=== PATIENT | female | born 1960 | race Caucasian/White ===

== ENCOUNTER 2020-01-23 15:19 | Inpatient (IN) | payer MEDICARE ==
[~2020-01-23] VITALS: Ht 162.6 cm; Wt 158.8 kg
--- NOTE | 2020-01-23 15:20 | NUR ---
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
--- NOTE | 2020-01-23 15:33 | NUR ---
PT SEEN AND EXAMINED BY .
[2020-01-23] MEDS ORDERED: OLANZAPINE 10 MG VIAL IM ONE ×2 (15:39→16:00)
[2020-01-23] MEDS ORDERED: LORAZEPAM INJ 2 MG/ML VIAL ONE (15:39)
--- NOTE | 2020-01-23 15:50 | NUR ---
PT'S WIND PROJECTS SUPERVISOR MARISABEL [phone]
[2020-01-23] MEDS ORDERED: LORAZEPAM INJ 2 MG/ML VIAL IM ONE (16:00)
[2020-01-23] MEDS ORDERED: HALOPERIDOL LACTATE INJ 5 MG/ML VIAL IM ONE (16:00)
[2020-01-23] MEDS ORDERED: POTA10TA10 PO (16:07)
[2020-01-23] MEDS ORDERED: BUSP10TA3 PO (16:07)
[2020-01-23] MEDS ORDERED: FURO-144 PO (16:07)
[2020-01-23] MEDS ORDERED: PERP4TAB11 PO (16:07)
[2020-01-23] MEDS ORDERED: PERP8TAB6 PO (16:07)
[2020-01-23] MEDS ORDERED: CLIN30GE2 TP (16:07)
[2020-01-23] MEDS ORDERED: TRAM50TA2 PO (16:07)
[2020-01-23] MEDS ORDERED: DIVA-78 PO (16:07)
[2020-01-23] MEDS ORDERED: MIDAZOLAM HCL 2 MG/2ML VIAL IM ONE (16:30)
[2020-01-23] MEDS ORDERED: MIDAZOLAM HCL 2 MG/2ML VIAL ONE (16:30)
--- NOTE | 2020-01-23 17:15 | NUR ---
IV LINE ESTABLISHED BLOOD DRAWN AND SENT TO LAB.
[2020-01-23 17:19] LABS: BASOPHILS # (AUTO) 0.1 /CMM (0.0-0.2); BASOPHILS % (AUTO) 0.8 % (0.0-2.0); EOSINOPHILS % (AUTO) 1.6 % (0.0-6.0); HEMATOCRIT 39 % (33-45); HEMOGLOBIN 12.7 g/dL (11.5-14.8); LYMPHOCYTES # (AUTO) 1.2 /CMM (0.8-4.8); LYMPHOCYTES % (AUTO) 15.7 % (20.0-44.0); MEAN CORPUSCULAR HGB CONC 33 g/dl (31.0-36.0); MEAN CORPUSCULAR VOLUME 97 fL (82-100); MONOCYTES % (AUTO) 12.5 % (2.0-12.0); NEUTROPHILS # (AUTO) 5.3 /CMM (1.8-8.9); NEUTROPHILS % (AUTO) 69.4 % (43.0-81.0); PLATELET COUNT (AUTO) 284 /CMM (150-450); RED BLOOD CELL COUNT(AUTO) 4.04 MIL/uL (4.0-5.2); WHITE BLOOD COUNT (AUTO) 7.7 K/uL (4.3-11.0)
--- NOTE | 2020-01-23 17:23 | NUR ---
URINE SPECIMEN COLLECTED AND SENT TO LAB.
[2020-01-23 17:36] LABS: ALANINE AMINOTRANSFERASE 20 U/L (12-78); ALBUMIN 2.8 g/dL (3.4-5.0); ALCOHOL, BLOOD < 3 mg/dL (0-0); ALKALINE PHOSPHATASE 95 U/L (46-116); ASPARTATE AMINOTRANSFERASE 19 U/L (15-37); BILIRUBIN,DIRECT 0.1 mg/dL (0.0-0.2); BILIRUBIN,TOTAL 0.2 mg/dL (0.2-1.0); CALCIUM, SERUM 9.1 mg/dL (8.5-10.1); CARBON DIOXIDE 30 mmol/L (21-32); CHLORIDE 107 mmol/L (98-107); CREATININE 0.9 mg/dL (0.6-1.3); GLUCOSE 113 mg/dL (74-106); POTASSIUM 4.1 mmol/L (3.5-5.1); SODIUM SERUM 142 mmol/L (136-145); TOTAL PROTEIN, SERUM 6.8 g/dL (6.4-8.2); UREA NITROGEN, BLOOD 17 mg/dL (7-18)
[2020-01-23 17:37] LABS: ACETAMINOPHEN < 2 ug/ml (10-30); SALICYLATE 1.8 mg/dL (2.8-20.0)
[2020-01-23 17:37] LABS: APPEARANCE,URINE Clear (CLEAR); BILIRUBIN,URINE SMALL (NEGATIVE); BLOOD, URINE Negative Ery/uL (NEGATIVE); COLOR,URINE Yellow (YELLOW); KETONES,URINE Negative (NEGATIVE); LEUKOCYTE ESTERASE ,URINE Negative (NEGATIVE); NITRITE, URINE Negative (NEGATIVE); PH,URINE 5.5 (5.0-8.0); PROTEIN,URINE Trace mg/dl (NEGATIVE); UGLUCOSE Negative (NEGATIVE); UROBILINOGEN,URINE 0.2 EU/dL (0.2)
[2020-01-23 17:45] LABS: BACTERIA,URINE Rare /HPF (None Seen); RBC,URINE NONE SEEN /HPF (0-2); SQUAMOUS EPITHELIAL CELL,UR Few /HPF (None Seen); WBC,URINE NONE SEEN /HPF (0-3)
--- NOTE | 2020-01-23 18:15 | NUR ---
CALLED [facility]. ETA 1 HOUR.
[2020-01-23] MEDS ORDERED: CEPHALEXIN MONOHYDRATE 500 MG CAPSULE PO ONE ×2 (19:00→19:01)
--- NOTE | 2020-01-23 20:22 | NUR ---
BED ASSIGNMENT 219
--- NOTE | 2020-01-23 20:32 | NUR ---
REPORT GIVEN TO GENA CHRISTINA FOR JUAN.
--- NOTE | 2020-01-23 21:07 | NUR ---
PT TRANPORTED TO UNIT ON [facility] WITH EMT AND RN AT BEDSIDE. PT IS IN STABLE CONDITION. PT AMBULATED FROM RMD TO BED WITH AN AIDE OF A FRONT WHEELED WALKER.
[2020-01-23] MEDS ORDERED: ACETAMINOPHEN 325 MG TABLET PO PRN (21:30)
[2020-01-23] MEDS ORDERED: MAG HYDROX/AL HYDROX/SIMETH 30 ML UDC PO PRN (21:30)
[2020-01-23] MEDS ORDERED: MAGNESIUM HYDROXIDE 30 ML UDC PO PRN (21:30)
[2020-01-23] MEDS ORDERED: BLOOD SUGAR DIAGNOSTIC 1 EACH STRIP IN ONE (22:00)
[2020-01-24 02:02] VITALS: BP 117/56
--- NOTE | 2020-01-24 02:06 | NUR ---
GPS MANAGER DENTAL NOTES: ADMITTED A 59 Y/O FEMALE FROM ER ORIGINALLY FROM HOME. ON A 5150 HOLD PLACED ON 01/23/2020 @ 19:15. PER HOLD PT WAS BROUGHT IN BY HER LANDLORD D/O INCREASED AGITATION AND ERRATIC BEHAVIOR. PER HOLD PT LANDLORD REPORTED THAT PT WAS THROWING ITEMS AT HER ROOMMATE, SCREAMING, YELLING DISRUPTIVE, REFUSING MEDICATION, HEARING VOICES, DELUSIONAL, ACCUSING PEOPLE OF STEALING HER STUFF. WAS PREVIOUSLY AN INPATIENT AT [facility] AND HAS A HISTORY OF SCHIZOPHRENIA. UPON FACE TO FACE ASSESSMENT, PT IS A/O X3, APPEARS DEPRESSED, UNCOOPERATIVE, AGITATED, YELLING, CURSING AT STAFF, DISORGANIZED, AND DELUSIONAL. PER ER STAFF, WHILE AT ER PT WAS OUT OF CONTROL AND WAS GIVEN ATIVAN, ZYPREXA AND VERSED. PT BREATHING IS EVEN AND UNLABORED WITH EQUAL RISE AND FALL OF THE CHEST, ON ROOM AIR WITH SPO2 OF 98%. PT HAS NO COMPLAINS OF PAINS AND DENIES SI, HI AT THIS TIME. PT UNABLE TO SIGN ADMISSION PAPER WORK. PT ADVISED OF HOLD AND PT RIGHTS BOOKLET AND A GUIDE TO PRESCRIPTION MEDICATION GIVEN. PT IS UNDER THE CARE OF DR PITT PSYCHIATRIST AND DR CARLSON INTERNAL MEDICINE. BOTH DOCTORS HAVE BEEN INFORMED OF PT ADMISSION. PT BELONGINGS INVENTORIED AND CHECKED FOR CONTRABANDS, BUT PT HAS NO CONTRABANDS. PT IS FULL CODE. SKIN ASSESSMENT DONE, PICTURES TAKEN AND PLACED IN CHAT, PT HAS BILATERAL LOWER EXTREMITIES EDEMA, AND HAS A WOUND ON HER LOWER RIGHT LEG. PT IS OBESE AND HAS DIFFICULTY AMBULATING, NEEDS 2 PERSON ASSIST. WOUND CONSULT, PT EVAL AND SOCIAL SERVICE CONSULT ORDERED. ALL PT QUESTIONS ANSWERED. PT EDUCATED ON THE USE OF CALL LIGHT. CALL LIGHT PLACED WITHIN REACH. PT BED SIDE RAILS ARE UP X2 FOR SAFETY. PT BED IS IN LOW LOCKED POSITION. Q15 AND Q1HR ROUNDS STARTED, CARE PLAN STARTED. WILL CONTINUE TO MONITOR FOR MOOD, SAFETY AND BEHAVIOR AND ENDORSE TO AM NURSE.
[2020-01-24] MEDS ORDERED: OLANZAPINE 10 MG VIAL IM STA (05:35)
[2020-01-24] MEDS ORDERED: LORAZEPAM INJ 2 MG/ML VIAL IM STA (05:35)
--- NOTE | 2020-01-24 05:54 | NUR ---
GPS RN NOTE, PATIENT IS CONFUSED, INCOHERENT, DELUSIONAL, AGITATED, AGGRESSIVE, YELLING, AND STRIKING OUT AT STAFF. LESS RESTRICTIVE MEASURES ATTEMPTED IE OFFERED PO MEDICATION, DIVERSION, 1 TO 1 INTERACTION, AND REORIENTATION WAS TRIED WITH NO POSITIVE EFFECT. PAGED DR PITT AND INFORMED HIM OF MY FINDINGS. DR PITT ORDERED ZYPREXA 10MG IM ONCE STAT AND ATIVAN 2MG IM ONCE STAT. PATIENT ASSISTED TO DEBI CHAIR AND GIVEN AFOREMENTIONED MEDICATION IN HER RIGHT VENTROGLUTEAL WITH THE HELP OF STAFF. PATIENT TOLERATE PROCEDURE WELL. ALL ORDERS NOTED AND CARRIED OUT WILL CONTINUE TO MONITOR THE PATIENT.
--- NOTE | 2020-01-24 07:00 | NUR ---
GPS RN NOTES: PT STILL SCREAMING AND CURSING. CURRENTLY IN DEBI-CHAIR IN HALLWAY YELLING AND CALLING STAFF ROBOTS, DISORGANIZED, DISORIENTED, AGITATED. NO S/S OF RESPIRATORY DISTRESS. WILL CONTINUE TO MONITOR AND ENDORSE TO AM NURSE.
--- NOTE | 2020-01-24 07:10 | NUR ---
GPS RN OPENING NOTE RECEIVED PT AWAKE IN A CHAIR, YELLING AND SCREAMING. AOX3. NO SOB NOTED, NO C/O PAIN AT THIS TIME, RESPIRATIONS EVEN AND UNLABORED. SAFETY PRECAUTIONS IN PLACE, BED IN LOWEST LOCKED POSITION, BED ALARM ON, HOB ELEVATED TO SEMI FOWLERS POSITION, CALL LIGHT WITHIN REACH,WILL CONTINUE WITH PLAN OF CARE AND CONTINUE TO MONITOR
[2020-01-24 08:00] VITALS: BP 127/81
[2020-01-24] MEDS: POTASSIUM CHLORIDE 10 MEQ TABLET.SA PO SCH (09:16)
[2020-01-24] MEDS: FUROSEMIDE 40 MG TABLET PO SCH ×2 (09:16→17:13)
[2020-01-24] MEDS: DIVALPROEX SODIUM 500 MG TABLET.DR PO SCH ×3 (09:16→17:13)
[2020-01-24] MEDS: CEPHALEXIN MONOHYDRATE 500 MG CAPSULE PO SCH ×2 (09:17→21:49)
[2020-01-24] MEDS: TRAMADOL HCL 50 MG TABLET PO SCH (09:27)
--- NOTE | 2020-01-24 11:14 | NUR ---
WOUND CARE CONSULT: PT PRESENTS WITH WOUND TO RT LOWER LEG WITH SURROUNDING REDNESS, SOME REDNESS TO LEFT LOWER LEG AND RASH WITH SOME OPEN SKIN TO RT UNDERBREAST/BREASTFOLD, PRESENT ON ADMISSION. RECOMMENDATIONS MADE FOR SKIN PROTECTION AND CARE OF BREASTFOLD RASH. DISCUSSED WITH NURSING STAFF. RECOMMEND DPM CONSULT. DR BRYSON NOTIFIED OF CONSULT REQUEST. PT IS CONTINENT AT THIS TIME. WILL SEE PRN. WAGNER IN AGREEMENT WITH PLAN OF CARE. Addendum: 01/24/20 at 1116 by IMER WALKER WNDNU Amended: Links added.
--- NOTE | 2020-01-24 13:27 | NUR ---
FRIEND CONTACT: SW contacted pts friend/landlord Marla ([phone]) for collateral contact and discharge/treatment planning. Per Marla, pt has been her friend for 21 years and states pt has been living in her apartment complex for many years. She states that pt was recently hospitalized at [facility] 01/06/20 2 weeks ago for 72 hours. She states that before this recent hospitalization pt had not been psychiatrically hospitalized in 2 years and before that it had been 5 years. She states that pt receives psychiatric treatment at [facility] Address: [address] [id number] and 2/3 months ago pts medication was changed due to pts rapid weight gain of 80lbs. Marla states this is when pt began having severe psychotic symptoms and began hearing voices and being disruptive. She states that pts outside psychiatrist has not been able to manage pts medication and stabilize her.
--- NOTE | 2020-01-24 13:39 | NUR ---
FACILITY CONTACT: SW contacted [facility] Address: [address] , [place] [address] and spoke with pts case manager specialist Annemarie, who confirms pt has been receiving mental health services and is under the care of psychiatrist Dr. Gaviria. She states pt began decompensating after pts psychiatric medications were changed. Annemarie states that once pt is stable for discharge she would like SW to fax clinical information to fax: [phone].
[2020-01-24] MEDS: Z GUARD REMEDY 2 OZ OINT TP SCH (14:04)
--- NOTE | 2020-01-24 14:07 | NUR ---
INITIAL DISCHARGE PLAN: Per pts friend/landlord Marla [phone] pt is able to return home to [address] [place], [address]. LASHAE will help form and safe and proper discharge plan in collaboration with .
[2020-01-24] MEDS: QUETIAPINE FUMARATE 100 MG TABLET PO SCH ×2 (14:24→17:12)
--- NOTE | 2020-01-24 15:32 | NUR ---
PT SEEN BY IMER WOUND CARE NURSE AND THE WOUND DOCTOR. WOUND CARE DONE. AWAITING ORDERS. WILL CONTINUE TO MONITOR
--- NOTE | 2020-01-24 15:54 | NUR ---
GROUP NOTE/INDIVIDUAL SESSION: Pt unable to participate at this time due to being sedated after pt received an IM on this present day for aggressive behavior.
[2020-01-24 16:00] VITALS: BP 124/73
[2020-01-24] MEDS: CLOTRIMAZOLE 1% 15 GM TUBE TP SCH (17:12)
--- NOTE | 2020-01-24 18:59 | NUR ---
GPS RN CLOSING NOTE PATIENT SLEEPING IN BED AND EASILY AWAKEN AT THIS TIME. PT REMAINED STABLE THROUGHOUT SHIFT, WOUND TREATMENT ADMINISTERED PER ORDER. ALL NEEDS, CARE, TREATMENT AND MEDICATIONS ADMINISTERED ANTICIPATED PER ORDER. PT REMAINED COMPLAINT TO CARE, SAFETY PRECAUTIONS IN PLACE, BED IN LOWEST LOCKED POSITION, BED ALARM ON, HOB ELEVATED TO SEMI FOWLERS POSITION, CALL LIGHT WITHIN REACH. WILL ENDORSE TO ADVISORY APPLICATION DEVELOPER NURSE FOR JUAN
[2020-01-24 20:55] VITALS: BP 113/85
--- NOTE | 2020-01-25 05:48 | NUR ---
GPS RN CLOSING NOTE: PATIENT SLEPT MOST OF THE NIGHT AND WOKE UP AT 0530 SCREAMING, CURSING, USING RACIAL SLURS, REFUSING REDIRECTION. RESPONDING TO INTERNAL STIMULI. PT WAS ALSO ANXIOUS, PRN KLONOPIN OFFERED FOR ANXIETY BUT PT REFUSED. NO S/S OF DISTRESS NOTED AT THIS TIME. RESPIRATION EVEN AND UNLABORED WITH EQUAL RISE AND FALL OF THE CHEST. PT ASSISTED TO AMBULATE WITH WALKER AROUND HALLWAY. SAFETY PRECAUTIONS IN PLACE, BED IN LOWEST LOCKED POSITION, BED ALARM ON, HOB ELEVATED TO SEMI FOWLERS POSITION, CALL LIGHT WITHIN REACH. CURRENTLY PT IS IN BED CURSING AND RESPONDING TO INTERNAL STIMULI. WILL CONTINUE TO MONITOR AND ENDORSE TO AM SHIFT.
[2020-01-25 08:00] VITALS: BP 125/63
[2020-01-25] MEDS: POTASSIUM CHLORIDE 10 MEQ TABLET.SA PO SCH (08:47)
[2020-01-25] MEDS: QUETIAPINE FUMARATE 100 MG TABLET PO SCH ×2 (08:47→16:41)
[2020-01-25] MEDS: FUROSEMIDE 40 MG TABLET PO SCH ×2 (08:47→16:40)
[2020-01-25] MEDS: clonazePAM 0.5 MG TABLET PO PRN ×2 (08:47→21:12)
[2020-01-25] MEDS: TRAMADOL HCL 50 MG TABLET PO SCH (08:47)
[2020-01-25] MEDS: CEPHALEXIN MONOHYDRATE 500 MG CAPSULE PO SCH ×2 (08:47→21:10)
[2020-01-25] MEDS: DIVALPROEX SODIUM 500 MG TABLET.DR PO SCH ×3 (08:47→16:41)
[2020-01-25] MEDS: SILVER SULFADIAZINE 50 GM JAR TP SCH (08:50)
[2020-01-25] MEDS: CLOTRIMAZOLE 1% 15 GM TUBE TP SCH ×2 (08:50→16:44)
[2020-01-25] MEDS: Z GUARD REMEDY 2 OZ OINT TP SCH (08:50)
--- NOTE | 2020-01-25 09:03 | NUR ---
GPS/RN-NOTES NOTED PATIENT VERY ANGRY,SCREAMING AND YELLING IN HER ROOM THROWING WATER PITCHER ON THE FLOOR. REDIRECTED PATIENT ,KLONOPIN 0.5MG P.O GIVEN PRN ORDER. WILL CONT. MONITORING FOR SAFETY AND BEHAVIOR.
--- NOTE | 2020-01-25 09:35 | NUR ---
GPS/RN-NOTES DID DRESSING CHANGE ON RIGHT LEG WOUND. Addendum: 01/25/20 at 1637 by PADMA DE LEON RN WOUND TREATMENT DONE
--- NOTE | 2020-01-25 10:00 | NUR ---
GPS/RN-NOTES PATIENT IN BED SLEEPING WITH BREATHING EVEN AND NONLABORED,EASILY AROUSE. WILL CONT. MONITORING Q15 MINS. FOR SAFETY AND BEHAVIOR.
[2020-01-25 16:00] VITALS: BP 123/71
[2020-01-25 16:47] LABS: BASOPHILS % (AUTO) 0.6 % (0.0-2.0); EOSINOPHILS % (AUTO) 3.6 % (0.0-6.0); HEMATOCRIT 36 % (33-45); HEMOGLOBIN 11.8 g/dL (11.5-14.8); LYMPHOCYTES # (AUTO) 1.5 /CMM (0.8-4.8); LYMPHOCYTES % (AUTO) 26.6 % (20.0-44.0); MEAN CORPUSCULAR HGB CONC 33 g/dl (31.0-36.0); MEAN CORPUSCULAR VOLUME 95 fL (82-100); MONOCYTES # (AUTO) 0.5 /CMM (0.1-1.30); MONOCYTES % (AUTO) 8.5 % (2.0-12.0); NEUTROPHILS # (AUTO) 3.5 /CMM (1.8-8.9); NEUTROPHILS % (AUTO) 60.7 % (43.0-81.0); PLATELET COUNT (AUTO) 246 /CMM (150-450); RED BLOOD CELL COUNT(AUTO) 3.74 MIL/uL (4.0-5.2); WHITE BLOOD COUNT (AUTO) 5.8 K/uL (4.3-11.0)
[2020-01-25 16:54] LABS: CALCIUM, SERUM 8.4 mg/dL (8.5-10.1); CREATININE 0.9 mg/dL (0.6-1.3); POTASSIUM 3.8 mmol/L (3.5-5.1)
[2020-01-25 20:42] VITALS: BP 102/54
[2020-01-25] MEDS: TEMAZEPAM 7.5 MG CAPSULE PO PRN (21:11)
[2020-01-26 08:00] VITALS: BP 141/71
[2020-01-26] MEDS: FUROSEMIDE 40 MG TABLET PO SCH ×2 (08:30→16:45)
[2020-01-26] MEDS: DIVALPROEX SODIUM 500 MG TABLET.DR PO SCH ×3 (08:31→16:44)
[2020-01-26] MEDS: CEPHALEXIN MONOHYDRATE 500 MG CAPSULE PO SCH ×2 (08:31→21:09)
[2020-01-26] MEDS: QUETIAPINE FUMARATE 100 MG TABLET PO SCH ×2 (08:31→16:44)
[2020-01-26] MEDS: TRAMADOL HCL 50 MG TABLET PO SCH (08:31)
[2020-01-26] MEDS: POTASSIUM CHLORIDE 10 MEQ TABLET.SA PO SCH (08:31)
[2020-01-26] MEDS: Z GUARD REMEDY 2 OZ OINT TP SCH (08:41)
[2020-01-26] MEDS: SILVER SULFADIAZINE 50 GM JAR TP SCH (08:42)
[2020-01-26] MEDS: CLOTRIMAZOLE 1% 15 GM TUBE TP SCH ×2 (08:42→17:00)
--- NOTE | 2020-01-26 09:00 | NUR ---
RN NOTE- PT LOUD ANXIOUS IRRITABLE ORIENTED TO SELF ONLY, MED COMPLIANT AT PRESENT DELUSIONAL AND DISORGANIZED
[2020-01-26] MEDS: clonazePAM 0.5 MG TABLET PO PRN (11:09)
--- NOTE | 2020-01-26 11:12 | NUR ---
RN NOTE- ANXIOUS LABILE YELLING DELUSIONAL. CLONAZEPAM 0.5 MG GIVEN
--- NOTE | 2020-01-26 12:05 | NUR ---
RN NOTE- CALLED RADIOLOGY REGARDING VENOUS DOPPLER ORDERED FOR PT. TOLD THEYD INFORM THE TECH. HAND RIVETER AWARE.
[2020-01-26 16:00] VITALS: BP 124/71
--- NOTE | 2020-01-26 17:00 | NUR ---
RN NOTE- ANTIFUNGAL APPLIED TO BREAST FOLDS BILATERALLY. DRESSING CHANGE COMPLETED TO RT LOWER EXTREMITY. CLEANSED W NS, SILVADENE TOPICAL APPLIED 4X4 GAUZE AND KERLIX WRAPPED TOLERATED WELL.
[2020-01-26 20:20] VITALS: BP 115/59
[2020-01-26] MEDS: TEMAZEPAM 7.5 MG CAPSULE PO PRN (21:46)
--- NOTE | 2020-01-26 21:46 | NUR ---
GPS-RN NOTE: INSOMNIA PATIENT C/O INABILITY TO SLEEP. ADMINISTERED RESTORIL 7.5MG PO ORDERED. WILL CONTINUE TO MONITOR.
[2020-01-26] MEDS ORDERED: OLANZAPINE 5 MG/TAB.RAPDIS PO SCH (22:00)
--- NOTE | 2020-01-27 02:18 | NUR ---
GPS-RN NOTE: PATIENT C/O BILATERAL FOOT PAIN. ADMINISTERED TYLENOL 650MG PO ORDERED. WILL CONTINUE TO MONITOR FOR EFFECTIVENESS.
[2020-01-27] MEDS: clonazePAM 0.5 MG TABLET PO PRN (06:17)
--- NOTE | 2020-01-27 06:17 | NUR ---
GPS-RN NOTE: AGITATION AFTER MORNING CARE RENDERED TO PATIENT. PATIENT IS VERY LOUD, YELLING AND SCREAMING. VERBALLY ABUSIVE TOWARDS STAFF. ADMINISTERED KLONOPIN 0.5MG PO ORDERED. WILL CONTINUE TO MONITOR FOR SAFETY AND BEHAVIOR.
[2020-01-27 08:00] VITALS: BP 123/66
[2020-01-27] MEDS: FUROSEMIDE 40 MG TABLET PO SCH ×2 (08:05→17:39)
[2020-01-27] MEDS: QUETIAPINE FUMARATE 100 MG TABLET PO SCH ×2 (08:05→17:39)
[2020-01-27] MEDS: DIVALPROEX SODIUM 500 MG TABLET.DR PO SCH ×3 (08:05→17:39)
[2020-01-27] MEDS: POTASSIUM CHLORIDE 10 MEQ TABLET.SA PO SCH (08:05)
[2020-01-27] MEDS: CEPHALEXIN MONOHYDRATE 500 MG CAPSULE PO SCH ×2 (08:05→21:16)
[2020-01-27] MEDS: TRAMADOL HCL 50 MG TABLET PO SCH (08:06)
[2020-01-27] MEDS: OLANZAPINE 5 MG/TAB.RAPDIS PO SCH ×2 (08:12→21:16)
[2020-01-27] MEDS: SILVER SULFADIAZINE 50 GM JAR TP SCH (08:52)
[2020-01-27] MEDS: Z GUARD REMEDY 2 OZ OINT TP PRN (08:52)
[2020-01-27] MEDS: CLOTRIMAZOLE 1% 15 GM TUBE TP SCH ×2 (08:52→17:43)
--- NOTE | 2020-01-27 09:00 | NUR ---
RN NOTE- QUIET TODAY DELUSIONAL PSYCHOTIC FLIGHT OF IDEAS DISORGANIZED PO INTAKE GOOD SLEEP ON AND OFF MED COMPLIANT
[2020-01-27] MEDS: Z GUARD REMEDY 2 OZ OINT TP SCH (09:12)
--- NOTE | 2020-01-27 14:30 | NUR ---
RN NOTE- SAW PT W TRAVEL PTA. DRESSING CHANGE DONE. CLEANSED W NS, SOME UNDERMINING NOTED, PINK GRANULATION TISSUE. NO PURULENCE, NO ODOR, MINIMAL EXUDATE. NO PAIN STATED. PACKED W NS AND GAUZE, SILVADENE APPLIED 4X4 APPLIED, ABD APPLIED WRAPPED W KERLIX TOLERATED WELL.
[2020-01-27 16:00] VITALS: BP 127/84
--- NOTE | 2020-01-27 16:19 | NUR ---
Group Note: SW encouraged the pt to participate in group therapy on 01/27/20 but the pt is obese and cannot transport herself to the activities room. LASHAE attempted to provide the pt with an individual therapy session at bedside but the pt stated that she wanted to remain asleep in her bed because she was feeling fatigued.
[2020-01-27 20:16] VITALS: BP 119/66
[2020-01-27] MEDS: TEMAZEPAM 7.5 MG CAPSULE PO PRN (21:43)
--- NOTE | 2020-01-27 21:43 | NUR ---
GPS-RN NOTE: INSOMNIA PATIENT C/O INABILITY TO SLEEP. ADMINISTERED RESTORIL 7.5MG PO ORDERED. WILL CONTINUE TO MONITOR.
[2020-01-28 08:00] VITALS: BP 105/61
[2020-01-28] MEDS: Z GUARD REMEDY 2 OZ OINT TP SCH (08:26)
[2020-01-28] MEDS: FUROSEMIDE 40 MG TABLET PO SCH ×2 (08:27→17:56)
[2020-01-28] MEDS: CLOTRIMAZOLE 1% 15 GM TUBE TP SCH ×2 (08:27→17:57)
[2020-01-28] MEDS: SILVER SULFADIAZINE 50 GM JAR TP SCH (08:27)
[2020-01-28] MEDS: TRAMADOL HCL 50 MG TABLET PO SCH (08:31)
[2020-01-28] MEDS: CEPHALEXIN MONOHYDRATE 500 MG CAPSULE PO SCH ×2 (08:31→21:16)
[2020-01-28] MEDS: clonazePAM 0.5 MG TABLET PO PRN (08:31)
[2020-01-28] MEDS: OLANZAPINE 5 MG/TAB.RAPDIS PO SCH ×2 (08:32→21:16)
[2020-01-28] MEDS: DIVALPROEX SODIUM 500 MG TABLET.DR PO SCH ×3 (08:32→17:56)
[2020-01-28] MEDS: POTASSIUM CHLORIDE 10 MEQ TABLET.SA PO SCH (08:32)
[2020-01-28] MEDS: QUETIAPINE FUMARATE 100 MG TABLET PO SCH ×2 (08:32→17:56)
--- NOTE | 2020-01-28 15:38 | NUR ---
GROUP NOTE: SW encouraged the pt to participate in group therapy, however, pt is not appropriate at this time. Pt is easily agitated with labile mood, Pt was yelling and screaming for the nurse and when SW approached her pt became verbally aggressive.
[2020-01-28 16:00] VITALS: BP 110/65
[2020-01-29 08:00] VITALS: BP 133/71
[2020-01-29] MEDS: FUROSEMIDE 40 MG TABLET PO SCH ×2 (08:10→16:32)
[2020-01-29] MEDS: QUETIAPINE FUMARATE 100 MG TABLET PO SCH ×2 (08:10→16:31)
[2020-01-29] MEDS: OLANZAPINE 5 MG/TAB.RAPDIS PO SCH ×2 (08:10→21:54)
[2020-01-29] MEDS: TRAMADOL HCL 50 MG TABLET PO SCH (08:10)
[2020-01-29] MEDS: DIVALPROEX SODIUM 500 MG TABLET.DR PO SCH ×3 (08:10→16:31)
[2020-01-29] MEDS: POTASSIUM CHLORIDE 10 MEQ TABLET.SA PO SCH (08:10)
[2020-01-29] MEDS: CEPHALEXIN MONOHYDRATE 500 MG CAPSULE PO SCH ×2 (08:10→21:54)
[2020-01-29] MEDS: Z GUARD REMEDY 2 OZ OINT TP SCH (09:49)
[2020-01-29] MEDS: CLOTRIMAZOLE 1% 15 GM TUBE TP SCH ×2 (09:49→16:38)
[2020-01-29] MEDS: SILVER SULFADIAZINE 50 GM JAR TP SCH (09:49)
--- NOTE | 2020-01-29 10:00 | NUR ---
GPS/RN-NOTES DID WOUND TREATMENT ON RIGHT LOWER LEG ORDERED.
--- NOTE | 2020-01-29 15:17 | NUR ---
Group Note: SW encouraged the pt to participate in group therapy on 01/29/20, however, pt is not appropriate at this time. Pt is easily agitated with labile mood, Pt was yelling and screaming for the nurse and when SW approached her pt became verbally aggressive.
[2020-01-29 16:00] VITALS: BP 127/75
[2020-01-29 19:43] VITALS: BP 115/42
[2020-01-29] MEDS: TEMAZEPAM 7.5 MG CAPSULE PO PRN (21:58)
[2020-01-30 08:00] VITALS: BP 130/68
[2020-01-30] MEDS: DIVALPROEX SODIUM 500 MG TABLET.DR PO SCH ×3 (08:16→17:32)
[2020-01-30] MEDS: POTASSIUM CHLORIDE 10 MEQ TABLET.SA PO SCH (08:17)
[2020-01-30] MEDS: FUROSEMIDE 40 MG TABLET PO SCH ×2 (08:17→17:49)
[2020-01-30] MEDS: CEPHALEXIN MONOHYDRATE 500 MG CAPSULE PO SCH ×2 (08:17→20:07)
[2020-01-30] MEDS: QUETIAPINE FUMARATE 100 MG TABLET PO SCH ×2 (08:17→17:31)
[2020-01-30] MEDS: OLANZAPINE 5 MG/TAB.RAPDIS PO SCH ×3 (08:17→17:32)
[2020-01-30] MEDS: TRAMADOL HCL 50 MG TABLET PO SCH (08:21)
[2020-01-30] MEDS: CLOTRIMAZOLE 1% 15 GM TUBE TP SCH ×2 (10:26→17:34)
[2020-01-30] MEDS: SILVER SULFADIAZINE 50 GM JAR TP SCH (10:27)
[2020-01-30] MEDS: Z GUARD REMEDY 2 OZ OINT TP SCH (10:27)
--- NOTE | 2020-01-30 13:15 | NUR ---
GPS/RN-NOTES SEEN BY DPM BETTYE (WOUND ) AND DID WOUND PACKING. PATIENT TOLERATED WELL.
--- NOTE | 2020-01-30 15:33 | NUR ---
Group Note: SW encouraged the pt to participate in group therapy on 01/30/20, however, pt is not appropriate at this time. Pt is easily agitated with labile mood, Pt was yelling and screaming for the nurse and when SW approached her pt became verbally aggressive. SW discussed with her that the pts medications will be changing as she has not shown much progress and the pt got agitated with the SW.
--- NOTE | 2020-01-30 15:41 | NUR ---
Friend Contact: LASHAE contacted pts friend/lois Marla ([phone]) and discussed the pts treatment plan. LASHAE stated that the pt has not shown much improvement and that the pts medications will be increasing. LASHAE stated that the pt was seen by Physical Therapy and Podiatry three times. LASHAE stated that she will call when the pt has a discharge date.
[2020-01-30 16:00] VITALS: BP 126/81
[2020-01-30 20:00] VITALS: BP 124/56
[2020-01-31 08:00] VITALS: BP 121/89
[2020-01-31] MEDS: POTASSIUM CHLORIDE 10 MEQ TABLET.SA PO SCH (08:24)
[2020-01-31] MEDS: FUROSEMIDE 40 MG TABLET PO SCH ×2 (08:24→17:00)
[2020-01-31] MEDS: QUETIAPINE FUMARATE 100 MG TABLET PO SCH ×2 (08:24→17:24)
[2020-01-31] MEDS: CEPHALEXIN MONOHYDRATE 500 MG CAPSULE PO SCH (08:24)
[2020-01-31] MEDS: DIVALPROEX SODIUM 500 MG TABLET.DR PO SCH ×3 (08:24→17:24)
[2020-01-31] MEDS: OLANZAPINE 5 MG/TAB.RAPDIS PO SCH ×3 (08:24→17:24)
[2020-01-31] MEDS: TRAMADOL HCL 50 MG TABLET PO SCH (08:25)
[2020-01-31] MEDS: CLOTRIMAZOLE 1% 15 GM TUBE TP SCH ×2 (10:09→17:29)
[2020-01-31] MEDS: SILVER SULFADIAZINE 50 GM JAR TP SCH (10:10)
[2020-01-31] MEDS: Z GUARD REMEDY 2 OZ OINT TP SCH (10:10)
[2020-01-31 16:00] VITALS: BP 100/57
[2020-01-31 21:13] VITALS: BP 108/60
[2020-02-01 08:00] VITALS: BP 132/63
[2020-02-01] MEDS: QUETIAPINE FUMARATE 100 MG TABLET PO SCH ×2 (08:56→17:04)
[2020-02-01] MEDS: FUROSEMIDE 40 MG TABLET PO SCH ×2 (08:56→17:03)
[2020-02-01] MEDS: DIVALPROEX SODIUM 500 MG TABLET.DR PO SCH ×3 (08:56→17:03)
[2020-02-01] MEDS: POTASSIUM CHLORIDE 10 MEQ TABLET.SA PO SCH (08:57)
[2020-02-01] MEDS: TRAMADOL HCL 50 MG TABLET PO SCH (08:57)
[2020-02-01] MEDS: OLANZAPINE 5 MG/TAB.RAPDIS PO SCH ×3 (08:57→17:04)
[2020-02-01] MEDS: SILVER SULFADIAZINE 50 GM JAR TP SCH (09:09)
[2020-02-01] MEDS: CLOTRIMAZOLE 1% 15 GM TUBE TP SCH ×2 (09:09→17:08)
[2020-02-01] MEDS: Z GUARD REMEDY 2 OZ OINT TP SCH (09:09)
[2020-02-01 16:00] VITALS: BP 130/61
[2020-02-01 20:46] VITALS: BP 116/72
[2020-02-02] MEDS: clonazePAM 0.5 MG TABLET PO PRN ×2 (01:42→08:40)
--- NOTE | 2020-02-02 01:42 | NUR ---
GPS RN NOTE: ANXIETY PT. APPEARS ANXIOUS. ADMINISTERED KLONOPIN 0.5 MG PO PRN ORDERED. WILL CONTINUE TO MONITOR FOR SAFETY AND BEHAVIOR.
[2020-02-02 08:00] VITALS: BP_SYST 111; BP_SYST 90; BP_DIAS 50; BP_DIAS 66
[2020-02-02] MEDS: TRAMADOL HCL 50 MG TABLET PO SCH (08:39)
[2020-02-02] MEDS: FUROSEMIDE 40 MG TABLET PO SCH ×2 (08:39→17:11)
[2020-02-02] MEDS: OLANZAPINE 5 MG/TAB.RAPDIS PO SCH ×2 (08:40→17:11)
[2020-02-02] MEDS: DIVALPROEX SODIUM 500 MG TABLET.DR PO SCH ×3 (08:40→17:11)
[2020-02-02] MEDS: QUETIAPINE FUMARATE 100 MG TABLET PO SCH ×2 (08:40→17:11)
--- NOTE | 2020-02-02 08:40 | NUR ---
RN NOTE: ANXIETY, AGGRESSION AND AGITATION PT AGITATED, VERBALLY AGGRESSIVE TO STAFF. PT IS DELUSIONAL. BELIEVES STAFF ARE PART OF THE MIGUEL. STATES STAFF ARE "PSYCHOTIC" BECAUSE "THEY HAVE NOT BEEN TAKING THEIR MEDICATIONS". PT YELLING AND DIFFICULT TO REDIRECT. PT MEDICATED WITH HER ROUTINE SEROQUEL, ULTRAM AND PRN KLONOPIN. WILL ASSESS EFFECTIVENESS OF MEDICATION ADMINISTRATION.
[2020-02-02] MEDS: POTASSIUM CHLORIDE 10 MEQ TABLET.SA PO SCH (08:43)
[2020-02-02] MEDS: CLOTRIMAZOLE 1% 15 GM TUBE TP SCH ×2 (09:11→17:23)
[2020-02-02] MEDS: Z GUARD REMEDY 2 OZ OINT TP PRN (09:12)
[2020-02-02] MEDS: Z GUARD REMEDY 2 OZ OINT TP SCH (09:12)
[2020-02-02] MEDS: SILVER SULFADIAZINE 50 GM JAR TP SCH (09:14)
--- NOTE | 2020-02-02 10:44 | NUR ---
RN-CO: NOTIFIED DR PITT THAT PATIENT'S BEHAVIOR IS NOT IMPROVING, PATIENT REMIANS PARANOID, VERY IRRITABLE, TALKING TO HERSELF AND AGITATED. DR PITT ORDERED INCREASE THE DOSAGE OF HER PSYCH MEDICATIONS. NOTED AND CARRIED OUT. WE WILL CONTINUE TO MONITOR THE PATIENT.
--- NOTE | 2020-02-02 15:35 | NUR ---
RN-CO: DR ROJO MADE AWARE THAT PATIENT'S RIGHT LEG WOUND IS WARM AND REDDISH. HOWEVER SHE DENIED PAIN AND DISCOMFORT. HER TEMP IS 97. 5. AWAITING FOR ORDER.
--- NOTE | 2020-02-02 15:48 | NUR ---
RN NOTE: WOUND CARE COMPLETED. 2-3+ EDEMA TO RIGHT LEG. RED AND WARM TO TOUCH. MOD AMT YELLOW/BROWN SLOUGH NOTED. DR. ROJO NOTIFIED.
[2020-02-02 16:03] VITALS: BP 101/62
--- NOTE | 2020-02-02 16:14 | NUR ---
RN-CO: DR ROJO STATED " I WILL STOP BY AND LOOK AT IT."
[2020-02-02 19:54] VITALS: BP 136/69
[2020-02-02] MEDS: TEMAZEPAM 7.5 MG CAPSULE PO PRN (20:51)
[2020-02-03 08:00] VITALS: BP 119/76
[2020-02-03] MEDS: TRAMADOL HCL 50 MG TABLET PO SCH (08:08)
[2020-02-03] MEDS: OLANZAPINE 5 MG/TAB.RAPDIS PO SCH ×2 (08:08→17:08)
[2020-02-03] MEDS: QUETIAPINE FUMARATE 100 MG TABLET PO SCH ×2 (08:09→17:08)
[2020-02-03] MEDS: DIVALPROEX SODIUM 500 MG TABLET.DR PO SCH ×3 (08:09→17:08)
[2020-02-03] MEDS: FUROSEMIDE 40 MG TABLET PO SCH ×3 (08:10→17:08)
[2020-02-03] MEDS: POTASSIUM CHLORIDE 10 MEQ TABLET.SA PO SCH ×2 (08:10→08:43)
--- NOTE | 2020-02-03 08:10 | NUR ---
RN NOTE- B/P 118/76 HR- 64 HELD LASIX AND K AT THIS TIME
[2020-02-03] MEDS: SILVER SULFADIAZINE 50 GM JAR TP SCH (08:14)
[2020-02-03] MEDS: Z GUARD REMEDY 2 OZ OINT TP SCH (08:14)
[2020-02-03] MEDS: CLOTRIMAZOLE 1% 15 GM TUBE TP SCH ×2 (08:14→17:09)
--- NOTE | 2020-02-03 08:45 | NUR ---
RN NOTE- DR CALLE LOOKED AT WOUND. STARTED ON ABX BACTRIM. WOUND CONSULT ORDERED. DISCUSSED BP AND VS. GAVE LASIX AND K SUPP.
--- NOTE | 2020-02-03 09:00 | NUR ---
RN NOTE- DELUSIONAL, CONFUSED ALERT ORIENTED TO PERSON PLACE PO INTAKE GOOD MED COMPLIANT. DR CALLE STARTED PT ON BACTRIM AND STATED WOUND IN RT LEG NEEDS ANOTHER WOUND CARE CONSULT. ORDERS PLACED AWAITING WOUND RN TO REEVAL. ORDERED CMP WELL.
[2020-02-03] MEDS: SULFAMETH/TRIMETH 800/160 MG 1 UDTAB TABLET PO SCH ×2 (09:01→21:08)
[2020-02-03 11:51] LABS: CALCIUM, SERUM 9.1 mg/dL (8.5-10.1); CREATININE 0.9 mg/dL (0.6-1.3); POTASSIUM 3.6 mmol/L (3.5-5.1)
[2020-02-03 12:10] LABS: BASOPHILS % (AUTO) 0.5 % (0.0-2.0); EOSINOPHILS % (AUTO) 3.2 % (0.0-6.0); HEMATOCRIT 40 % (33-45); LYMPHOCYTES # (AUTO) 1.3 /CMM (0.8-4.8); LYMPHOCYTES % (AUTO) 23.3 % (20.0-44.0); MEAN CORPUSCULAR HGB CONC 33 g/dl (31.0-36.0); MEAN CORPUSCULAR VOLUME 94 fL (82-100); MONOCYTES # (AUTO) 0.6 /CMM (0.1-1.30); MONOCYTES % (AUTO) 10.5 % (2.0-12.0); NEUTROPHILS # (AUTO) 3.5 /CMM (1.8-8.9); NEUTROPHILS % (AUTO) 62.5 % (43.0-81.0); PLATELET COUNT (AUTO) 214 /CMM (150-450); RED BLOOD CELL COUNT(AUTO) 4.23 MIL/uL (4.0-5.2); WHITE BLOOD COUNT (AUTO) 5.6 K/uL (4.3-11.0)
--- NOTE | 2020-02-03 15:50 | NUR ---
RN NOTE- WOUND CARE COMPLETED EARLIER W WOUND CARE MD. CLEANSED W NS, 4X4 GAUZE APPLIED TO UNDERMINED AREA, COVERED W DRSG. TAPED SECURELY. HYDRAGEL ORDERED. WILL COMPLETE WOUND CARE AGAIN THIS SHIFT
[2020-02-03 16:00] VITALS: BP 117/67
--- NOTE | 2020-02-03 16:20 | NUR ---
Group Note: SW encouraged the pt to participate in group therapy on 02/03/20, however, pt is not appropriate at this time. Pt is easily agitated with labile mood, Pt was yelling and screaming for the nurse and when SW approached her pt became verbally aggressive. SW discussed with her that the pts medications will be changing as she has not shown much progress and the pt got agitated with the SW.
--- NOTE | 2020-02-03 19:30 | NUR ---
GPS OPENING NOTE PM REPORT RECIEVED FROM ELIAN AVERY. GPS RN PM OPENING PATIENT AWAKE IN BED. SPEECH IS PRESURIZED AND RAMBLING. REVIEWED POC QUESTIONS CONCERNS ADDRESSED. PATIENT DENIES SI/HI AT THIS TIME. WOUND DRESSING TO RIGHT LEG IS INTACT WITH NO S/S OF DRAINAGE AT THIS TIME. APPEARS DISHEVELED. IN NO APPARENT DISTRESS BREATHING EVEN AND UNLABORED DENIES PAIN. BED LOCKED AND PLACED IN LOWEST POSITION TO MAINTAIN SAFETY. FALL PRECAUTIONS IN PLACE. BED ALARM ACTIVE. WILL CONTINUE TO MONITOR FOR SAFETY AND BEHAVIOR.
[2020-02-03 20:23] VITALS: BP 118/57
[2020-02-03] MEDS: TEMAZEPAM 7.5 MG CAPSULE PO PRN (21:07)
--- NOTE | 2020-02-04 01:28 | NUR ---
US DEPARTMENT CALLED AND LEFT MESSAGE REMINDING THAT US STUDY IS STILL PENDING COMPLETION.
[2020-02-04 08:00] VITALS: BP 117/71
[2020-02-04] MEDS: QUETIAPINE FUMARATE 100 MG TABLET PO SCH ×2 (08:35→16:25)
[2020-02-04] MEDS: POTASSIUM CHLORIDE 10 MEQ TABLET.SA PO SCH (08:36)
[2020-02-04] MEDS: DIVALPROEX SODIUM 500 MG TABLET.DR PO SCH ×3 (08:36→16:25)
[2020-02-04] MEDS: FUROSEMIDE 40 MG TABLET PO SCH ×2 (08:36→16:25)
[2020-02-04] MEDS: SULFAMETH/TRIMETH 800/160 MG 1 UDTAB TABLET PO SCH (08:36)
[2020-02-04] MEDS: OLANZAPINE 5 MG/TAB.RAPDIS PO SCH ×2 (08:36→16:25)
[2020-02-04] MEDS: TRAMADOL HCL 50 MG TABLET PO SCH (08:36)
[2020-02-04] MEDS: HYDROGEL DRESSING 90 GM TUBE TP SCH (08:39)
[2020-02-04] MEDS: CLOTRIMAZOLE 1% 15 GM TUBE TP SCH ×2 (08:39→16:26)
[2020-02-04] MEDS: Z GUARD REMEDY 2 OZ OINT TP SCH (08:39)
--- NOTE | 2020-02-04 09:00 | NUR ---
RN NOTE- PT W LESS VERBAL OUTBURSTS, DECREASED DELUSIONAL THINKING. AGREED TO SHOWER. SPOKE W MD THIS MORNING VIA TELE MED. PT HAS RASH TO FOREHEAD ERYTHEMATOUS. NO EXUDATE NO PRURITIS. WILL NOTIFY DR CALLE. DENIES SI [facility]
--- NOTE | 2020-02-04 10:10 | NUR ---
RN NOTE- WOUND CARE COMPLETED RT LOWER LEG. CLEANSED W NS, AQUAGEL APPLIED AND 4X4 PLACED OVER , WRAPPED W KERLIX. ALSO NOTED ERYTHEMATOUS RASH TO FOREHEAD AND NOSE. INCREASING THIS MORNING. PT DENIES PRURITIS. NO EXUDATE. DR CALLE NOTIFIED. ORDERED STOP BACTRIM AND GIVE BENADRYL 25 MG PO Q8 PRN
[2020-02-04] MEDS: diphenhydrAMINE HCL 25 MG CAPSULE PO PRN (11:21)
--- NOTE | 2020-02-04 11:21 | NUR ---
RN NOTE- SKIN IRRITATION TO FOREHEAD AND NOSE. BENADRYL 25 MG GIVEN AT THIS TIME.
[2020-02-04 16:00] VITALS: BP 106/58
--- NOTE | 2020-02-04 17:58 | NUR ---
RN NOTE- VENOUS DOPPLER TO BE DONE ON THIS PT RLE. I PHONED YESTERDAY AFTERNOON AND WAS TOLD TECH HAD THE ORDER AND IT WOULD BE DONE. NO RESULTS TODAY. NO DOPPLER DONE. CALLED RADIOLOGY THIS AFTERNOON AND SPOKE Kimberly LE. STATED TECH HAD ORDER BUT HE'D CALL AND FOLLOW UP. PT HAD REFUSED DOPPLER IN PAST SO IM UNSURE IF TECH CAME AND PT REFUSED OR NOT. PT CONFUSED AT TIMES. AWAITING RADIOLOGY FOLLOW UP.
[2020-02-04 19:58] VITALS: BP 111/56
[2020-02-04] MEDS: TEMAZEPAM 7.5 MG CAPSULE PO PRN (22:15)
--- NOTE | 2020-02-04 22:15 | NUR ---
GPS RN NOTE: INSOMNIA PATIENT C/O INABILITY TO SLEEP. PT REQUESTED FOR SLEEPING PILL. ADMINISTERED RESTORIL 7.5MG PO ORDERED. WILL CONTINUE TO MONITOR.
[2020-02-05 08:00] VITALS: BP 122/78
[2020-02-05] MEDS: FUROSEMIDE 40 MG TABLET PO SCH ×2 (08:08→16:31)
[2020-02-05] MEDS: TRAMADOL HCL 50 MG TABLET PO SCH (08:09)
[2020-02-05] MEDS: OLANZAPINE 5 MG/TAB.RAPDIS PO SCH ×2 (08:09→16:31)
[2020-02-05] MEDS: QUETIAPINE FUMARATE 100 MG TABLET PO SCH ×2 (08:09→16:31)
[2020-02-05] MEDS: DIVALPROEX SODIUM 500 MG TABLET.DR PO SCH ×3 (08:09→16:31)
[2020-02-05] MEDS: POTASSIUM CHLORIDE 10 MEQ TABLET.SA PO SCH (08:09)
[2020-02-05] MEDS: CLOTRIMAZOLE 1% 15 GM TUBE TP SCH ×2 (08:10→16:31)
[2020-02-05] MEDS: HYDROGEL DRESSING 90 GM TUBE TP SCH (08:10)
[2020-02-05] MEDS: Z GUARD REMEDY 2 OZ OINT TP SCH (09:00)
--- NOTE | 2020-02-05 09:40 | NUR ---
Friend Contact: SW contacted pts friend/lois Marla ([phone]) and she stated that she was informed that the pt would be discharged on Monday. SW stated that she would have to speak to the MD because the SW was informed that it would be on . SW went over the pts behaviors with her and also discussed that the friend would have to speak to the nurses regarding the pts skin condition.
--- NOTE | 2020-02-05 14:24 | NUR ---
Group Note: SW encouraged the pt to participate in group therapy on 02/05/20, but the pt stated that she wanted to remain in her bed and that she will be discharged soon anyway so she does not want to concern herself with group.
[2020-02-05 16:00] VITALS: BP 105/68
[2020-02-05 20:12] VITALS: BP 123/65
[2020-02-05] MEDS: TEMAZEPAM 7.5 MG CAPSULE PO PRN (22:38)
[2020-02-06 08:00] VITALS: BP 122/66
[2020-02-06] MEDS: POTASSIUM CHLORIDE 10 MEQ TABLET.SA PO SCH (08:39)
[2020-02-06] MEDS: OLANZAPINE 5 MG/TAB.RAPDIS PO SCH ×2 (08:40→17:02)
[2020-02-06] MEDS: FUROSEMIDE 40 MG TABLET PO SCH ×2 (08:41→17:02)
[2020-02-06] MEDS: TRAMADOL HCL 50 MG TABLET PO SCH (08:41)
[2020-02-06] MEDS: DIVALPROEX SODIUM 500 MG TABLET.DR PO SCH ×3 (08:42→17:02)
[2020-02-06] MEDS: QUETIAPINE FUMARATE 100 MG TABLET PO SCH ×2 (08:42→17:02)
[2020-02-06] MEDS: HYDROGEL DRESSING 90 GM TUBE TP SCH (08:43)
[2020-02-06] MEDS: Z GUARD REMEDY 2 OZ OINT TP SCH (08:44)
[2020-02-06] MEDS: CLOTRIMAZOLE 1% 15 GM TUBE TP SCH ×2 (08:45→17:03)
--- NOTE | 2020-02-06 09:06 | NUR ---
SNF Referral: SW faxed a referral to the following two facilities: [facility] with attn to Aide to the fax number: [phone] [facility] with attn to Ivan to the fax number: [phone].
--- NOTE | 2020-02-06 11:22 | NUR ---
Friend Contact: LASHAE contacted pts friend/lois Gutiérrez ([phone]) and confirmed that the pt is going to be discharged the following day and that she will get picked up around 4:30-5pm.
--- NOTE | 2020-02-06 14:06 | NUR ---
Group Note: SW encouraged the pt to participate in group therapy on 02/06/20, but the pt stated that she wanted to remain in her bed and that she will be discharged soon anyway so she does not want to concern herself with group intervention or even individual. SW informed her that the pt may not be appropriate for a discharge home and that she may need to be in a SNF. Pt stated that she will refuse any services if she is discharged to a SNF.
--- NOTE | 2020-02-06 15:33 | NUR ---
RN NOTES CALLED DR BARAHONA OFFICE [phone], AND LEFT MASSAGE WITH STAFFING RN FOR VASCULAR SURGEON CONSULTATION, PER HOSPITALIST DR KUMAR ORDER.
[2020-02-06 16:00] VITALS: BP 144/72
--- NOTE | 2020-02-06 17:16 | NUR ---
RN NOTES RECEIVED CALL FROM VASCULAR SURGEON Dr. BARAHONA, PER MD WILL FOLLOW PATIENT IN THE OUTPATIENT WOUND CLINIC. . MD'S PHONE # GIVEN PATIENT TO FOLLOW UP.
[2020-02-06 20:00] VITALS: BP 107/54
[2020-02-06] MEDS: TEMAZEPAM 7.5 MG CAPSULE PO PRN (22:07)
--- NOTE | 2020-02-06 22:07 | NUR ---
GPS RN NOTE: INSOMNIA PATIENT C/O INABILITY TO SLEEP. ADMINISTERED RESTORIL 7.5MG PO ORDERED. WILL CONTINUE TO MONITOR.
[2020-02-06 22:33] VITALS: BP 107/54
[2020-02-07] MEDS: diphenhydrAMINE HCL 25 MG CAPSULE PO PRN (01:23)
--- NOTE | 2020-02-07 01:23 | NUR ---
GPS-RN NOTE: BENADRYL 25MG PO PRN FOR ITCHING ON FOREHEAD. WILL CONTINUE TO MONITOR.
--- NOTE | 2020-02-07 06:26 | NUR ---
GPS-RN NOTE: MOM 30ML PO GIVEN FOR CONSTIPATION.
[2020-02-07 08:00] VITALS: BP 111/81
--- NOTE | 2020-02-07 08:35 | NUR ---
DISCHARGE NOTE: Pt will be discharged back to her home [address] at [address] [place], [address]. Pts friend and landlord, Marla ([phone]), will be picking the pt up around 4pm. Pts mood is euthymic with congruent affect. Pt denies visual/auditory hallucinations and denies suicidal/homicidal ideation. Pt will follow up with tele psychiatrist: Johnny [place] at [address] [place] [address]; ; and a fax of records was sent to: [phone] and Flask Maker: Dr. [place] [address] [place] [address]; . The multidisciplinary exit care form was done, printed, signed, and given to the patient.
[2020-02-07] MEDS: POTASSIUM CHLORIDE 10 MEQ TABLET.SA PO SCH (09:05)
[2020-02-07] MEDS: DIVALPROEX SODIUM 500 MG TABLET.DR PO SCH ×2 (09:05→13:05)
[2020-02-07] MEDS: OLANZAPINE 5 MG/TAB.RAPDIS PO SCH (09:05)
[2020-02-07] MEDS: FUROSEMIDE 40 MG TABLET PO SCH (09:05)
[2020-02-07] MEDS: QUETIAPINE FUMARATE 100 MG TABLET PO SCH (09:05)
[2020-02-07] MEDS: TRAMADOL HCL 50 MG TABLET PO SCH (09:06)
[2020-02-07] MEDS: CLOTRIMAZOLE 1% 15 GM TUBE TP SCH (09:06)
[2020-02-07] MEDS: Z GUARD REMEDY 2 OZ OINT TP SCH (09:07)
[2020-02-07] MEDS: HYDROGEL DRESSING 90 GM TUBE TP SCH (09:08)
--- NOTE | 2020-02-07 13:55 | NUR ---
GPS/RN PRESCRIPTIONS FAXED TO THE [facility] FAX [phone]. CONFIRMED WITH PHARMACIST CHARLETTE. PT REFUSED PICTURES ON DISCHARGE. NO SI OR HI AT THE TIME OF ASSESSMENT. FAMILY WILL SUGAR PRESSER PT AT 1600.
--- NOTE | 2020-02-07 16:00 | NUR ---
GPS/RN DISCHARGED HOME VIA PRIVATE CAR WITH FRIEND MARISABEL. PT AMBULATORY WITH WALKER AND ASSIST. WOUND CARE DONE TODAY. PT REFUSED PICTURES TAKEN ON DISCHARGE. EXIT CARE INSTRUCTIONS GIVEN AND UNDERSTOOD. PROPERTY RETURNED.GHOTRA WALKER RETURNED WELL. CAREGIVER MARISABEL ALREADY PICKED UP THE MEDICATIONS FROM PHARMACY ( CALLED IN THE PRESCRIPTIONS EARLIER) NO SI OR HI AT THE TIME OF DISCHARGE REPORTED.
== END 2020-02-07 16:00 | disposition home or self-care (01) | DRG 885 ==
LOC: ER 15:19 → GPS 20:39
PROVIDERS: ADMIT Psychiatry & Neurology Psychiatry; ATTEND Registered Nurse
DX: F20.0 Paranoid schizophrenia (principal); I11.0 Hypertensive heart disease with heart failure; Z68.44 Body mass index [BMI] 60.0-69.9, adult; L03.115 Cellulitis of right lower limb; I50.32 Chronic diastolic (congestive) heart failure; I87.311 Chronic venous hypertension (idiopathic) with ulcer of right lower extremity; L97.819 Non-pressure chronic ulcer of other part of right lower leg with unspecified severity; I87.2 Venous insufficiency (chronic) (peripheral); G89.4 Chronic pain syndrome; E66.01 Morbid (severe) obesity due to excess calories; M62.81 Muscle weakness (generalized); F41.9 Anxiety disorder, unspecified; F32.9 Major depressive disorder, single episode, unspecified; I77.1 Stricture of artery; Z91.81 History of falling; F29 Unspecified psychosis not due to a substance or known physiological condition
CPT/HCPCS: 36415; 80048-TC; 80061-TC; 80076-TC; 80164-TC; 80305; 81000-TC; 82962-TC; 84443-TC; 85025-TC; 87081-TC; 93926-TC; 93970-TC; 97116-TC; 97530-TC; A6248; A6253; G0480; J2060; J2250; J3490; Q0163

== ENCOUNTER 2020-02-15 16:31 | Inpatient (IN) | payer MEDICARE, OTHER ==
[~2020-02-15] VITALS: Ht 162.6 cm; Wt 134.7 kg
[~2020-02-15 16:31] MED LIST: BUSP10TA3 PO; CLIN30GE2 TP; DIVA-78 PO; FURO-144 PO; PERP4TAB11 PO; PERP8TAB6 PO; POTA10TA10 PO; TRAM50TA2 PO
--- NOTE | 2020-02-15 16:56 | NUR ---
DROPPED OFF BY MARISABEL EMERSON, WORSENING AGITATION/SCREAMING AND THROWING THINGS, SINCE SHE WAS D/C'D FRO, GPS, PATIENT NOTED W RLE WOUND AND REDNESS. TO ER BED 10, HOOKED TO MONITOR, CHANGED TO HOSP GOWN, WARM BLANKET PROVIDED, AWAITING MD GALAVIZ.
--- NOTE | 2020-02-15 17:00 | NUR ---
URINE SAMPLE COLLECTED VIA STRAIGHT CATHETER, SENT SAMPLE TO LAB
--- NOTE | 2020-02-15 17:07 | NUR ---
DR ARBOLEDA AT BEDSIDE
[2020-02-15] MEDS ORDERED: OLANZAPINE 10 MG VIAL IM ONE ×4 (17:09→18:30)
[2020-02-15 17:18] LABS: BILIRUBIN,URINE MODERATE (NEGATIVE); BLOOD, URINE Negative Ery/uL (NEGATIVE); COLOR,URINE Yellow (YELLOW); KETONES,URINE Trace (NEGATIVE); LEUKOCYTE ESTERASE ,URINE Negative (NEGATIVE); NITRITE, URINE Negative (NEGATIVE); PH,URINE 5.5 (5.0-8.0); PROTEIN,URINE 30 mg/dl (NEGATIVE); UGLUCOSE Negative (NEGATIVE)
[2020-02-15 17:21] LABS: APPEARANCE,URINE SLIGHTLY HAZY (CLEAR); BACTERIA,URINE Few /HPF (None Seen); SQUAMOUS EPITHELIAL CELL,UR Moderate /HPF (None Seen)
[2020-02-15 17:26] LABS: BASOPHILS # (AUTO) 0.1 /CMM (0.0-0.2); BASOPHILS % (AUTO) 0.9 % (0.0-2.0); EOSINOPHILS % (AUTO) 0.5 % (0.0-6.0); HEMATOCRIT 37 % (33-45); HEMOGLOBIN 12.2 g/dL (11.5-14.8); LYMPHOCYTES # (AUTO) 1.1 /CMM (0.8-4.8); LYMPHOCYTES % (AUTO) 16.6 % (20.0-44.0); MEAN CORPUSCULAR HGB CONC 33 g/dl (31.0-36.0); MEAN CORPUSCULAR VOLUME 94 fL (82-100); MONOCYTES # (AUTO) 0.7 /CMM (0.1-1.30); MONOCYTES % (AUTO) 10.6 % (2.0-12.0); NEUTROPHILS # (AUTO) 4.9 /CMM (1.8-8.9); NEUTROPHILS % (AUTO) 71.4 % (43.0-81.0); PLATELET COUNT (AUTO) 295 /CMM (150-450); RED BLOOD CELL COUNT(AUTO) 3.96 MIL/uL (4.0-5.2); WHITE BLOOD COUNT (AUTO) 6.9 K/uL (4.3-11.0)
[2020-02-15 17:32] LABS: CALCIUM, SERUM 8.9 mg/dL (8.5-10.1); CARBON DIOXIDE 26 mmol/L (21-32); CHLORIDE 108 mmol/L (98-107); CREATININE 0.9 mg/dL (0.6-1.3); GLUCOSE 140 mg/dL (74-106); SODIUM SERUM 141 mmol/L (136-145); UREA NITROGEN, BLOOD 13 mg/dL (7-18)
--- NOTE | 2020-02-15 17:33 | NUR ---
room [id number]
--- NOTE | 2020-02-15 17:39 | NUR ---
report given to Faizan AVERY for nnamdi
[2020-02-15 17:47] LABS: ALANINE AMINOTRANSFERASE 22 U/L (12-78); ALBUMIN 3.1 g/dL (3.4-5.0); ALCOHOL, BLOOD < 3 mg/dL (0-0); ALKALINE PHOSPHATASE 107 U/L (46-116); ASPARTATE AMINOTRANSFERASE 18 U/L (15-37); BILIRUBIN,DIRECT 0.1 mg/dL (0.0-0.2); BILIRUBIN,TOTAL 0.3 mg/dL (0.2-1.0); SALICYLATE < 2.8 mg/dL (2.8-20.0); TOTAL PROTEIN, SERUM 6.9 g/dL (6.4-8.2)
[2020-02-15] MEDS ORDERED: OLAN10TA3 MT (17:55)
[2020-02-15] MEDS ORDERED: QUET300T2 PO (17:55)
[2020-02-15] MEDS ORDERED: VANCOMYCIN 1 GM in IV D5W 250 ML IV ONE (18:00)
[2020-02-15] MEDS ORDERED: PIPERACILLIN /TAZOBACTAM 3.375 G in IV D5W 50 ML IV ONE (18:00)
[2020-02-15] MEDS ORDERED: VANCOMYCIN 1 GM VIAL ONE (18:06)
[2020-02-15] MEDS ORDERED: PIPERACILLIN /TAZOBACTAM 3.375 G VIAL IV ONE (18:06)
[2020-02-15] MEDS ORDERED: Z GUARD REMEDY 2 OZ OINT TP PRN (18:30)
[2020-02-15] MEDS ORDERED: ACETAMINOPHEN 325 MG TABLET PO PRN (18:30)
[2020-02-15] MEDS ORDERED: ONDANSETRON HCL/PF 4 MG/2 ML VIAL IVP PRN (18:30)
[2020-02-15] MEDS ORDERED: ZOLPIDEM TARTRATE 5 MG TABLET PO PRN (18:30)
[2020-02-15] MEDS ORDERED: MAGNESIUM HYDROXIDE 30 ML UDC PO PRN (18:30)
[2020-02-15] MEDS ORDERED: MAG HYDROX/AL HYDROX/SIMETH 30 ML UDC PO PRN (18:30)
--- NOTE | 2020-02-15 19:17 | NUR ---
RN NOTES RECEIVED PATIENT FROM ED. PT IS DELUSIONAL, SAYS SHES HEARING SPIRITS TALKING TO HER. MADE PATIENT COMFORTABLE, BELONGINGS CHECKED OFF, ENDORSED TO NIGHTSHIFT RN FOR JUAN
[2020-02-15 20:00] VITALS: BP 125/94
[2020-02-15] MEDS: PERPHENAZINE 2 MG TABLET PO SCH (20:45)
[2020-02-15] MEDS: QUETIAPINE FUMARATE 100 MG TABLET PO SCH (21:05)
[2020-02-16] MEDS ORDERED: PIPERACILLIN /TAZOBACTAM 3.375 G VIAL IV ONE ×2 (00:27→05:36)
[2020-02-16] MEDS: ZOSYN IVPB 3.375 G in IV D5W 50ml IV SCH ×2 (00:28→06:00)
[2020-02-16 04:00] VITALS: BP 126/71
--- NOTE | 2020-02-16 05:03 | NUR ---
RN notes Received patient in bed resting comfortably with no respiratory distress noted. Breathing even and unlabored. Room air well tolerated. No physical manifestation of pain or discomfort. Alert and confused and disoriented, talking to self, shouting, yelling, crying and very angry. Patient has a history of chronic schizophrenia and other psychiatric disorders. Skin assessment done, admitted for bilateral lower extremities cellulitis with stasis ulcer. Spoke with Dr. Milner, informed him of his new admission. The doctor said he will see her today. Kept clean and dry. Will endorse to next shift for continuity of care.
[2020-02-16 05:04] VITALS: BP 126/62
--- NOTE | 2020-02-16 07:15 | NUR ---
RN OPENING NOTES RECEIVED PATIENT SLEEPING IN BED COMFORTABLY, WITH ONE TO ONE SITTER AT BEDSIDE. PT IS AOX1, DELUSIONAL, WITH PARANOID IDEATIONS. SHE IS ON RA, TOLERATING WELL, NO SOB OR RESP DISTRESS. PT IS ON STRICT BED REST. SKIN IS NOT INTACT, B LOWER EXTREMITY CELLULITIS. IV SITE ON RFA 20 G SL. PT IS ON 5150 HOLD FOR DTO AND GD. SAFETY MEASURES HAVE BEEN IMPLEMENTED, CALL LIGHT IS WITHIN REACH, BED IS IN LOWEST AND LOCKED POSITION, SIDE RAILS UP X2, WILL CONTINUE TO MONITOR FOR ANY CHANGES.
[2020-02-16] MEDS ORDERED: FEE PK DOSING 1 MIN EA MC ONE (07:29)
[2020-02-16] MEDS: PANTOPRAZOLE 40 MG TABLET.DR PO SCH (07:52)
[2020-02-16 08:00] VITALS: BP 108/73
[2020-02-16] MEDS: FUROSEMIDE 40 MG TABLET PO SCH ×2 (08:44→17:25)
[2020-02-16] MEDS: PERPHENAZINE 2 MG TABLET PO SCH ×2 (08:44→17:27)
[2020-02-16] MEDS: POTASSIUM CHLORIDE 10 MEQ TABLET.SA PO SCH (08:44)
[2020-02-16] MEDS: OLANZAPINE 10 MG TABLET PO SCH ×2 (08:44→17:25)
[2020-02-16] MEDS ORDERED: CLINDAMYCIN PHOSPHATE-T 60 ML BOTTLE TP SCH (09:00)
[2020-02-16] MEDS ORDERED: TRAMADOL HCL 50 MG TABLET PO PRN (09:00)
[2020-02-16 11:00] LABS: BASOPHILS % (AUTO) 0.8 % (0.0-2.0); HEMATOCRIT 37 % (33-45); HEMOGLOBIN 11.9 g/dL (11.5-14.8); LYMPHOCYTES % (AUTO) 20.8 % (20.0-44.0); MEAN CORPUSCULAR HGB CONC 32 g/dl (31.0-36.0); MEAN CORPUSCULAR VOLUME 94 fL (82-100); MONOCYTES # (AUTO) 0.6 /CMM (0.1-1.30); MONOCYTES % (AUTO) 12.1 % (2.0-12.0); NEUTROPHILS # (AUTO) 3.1 /CMM (1.8-8.9); NEUTROPHILS % (AUTO) 65.3 % (43.0-81.0); PLATELET COUNT (AUTO) 267 /CMM (150-450); WHITE BLOOD COUNT (AUTO) 4.8 K/uL (4.3-11.0)
[2020-02-16 11:10] LABS: CALCIUM, SERUM 8.6 mg/dL (8.5-10.1); MAGNESIUM 2.2 mg/dL (1.8-2.4); PHOSPHORUS 3.1 mg/dL (2.5-4.9); POTASSIUM 4.1 mmol/L (3.5-5.1)
--- NOTE | 2020-02-16 11:31 | NUR ---
AT 1130 attempted to obtained COVID 19 patient refused stated that she always negative but encouraged Dr Barton was notified stated it is ok
[2020-02-16] MEDS: PIPERACILLIN /TAZOBACTAM 3.375 G in IV D5W 50 ML IV SCH ×3 (12:07→23:55)
[2020-02-16] MEDS: VANCOMYCIN 1.5 GM in IV D5W 500 ML IV SCH (12:49)
--- NOTE | 2020-02-16 14:52 | NUR ---
RN NOTES PATIENT IS EXPERIENCING PARANOID IDEATIONS. STATES THAT THERE ARE CAMERA AROUND THE ROOM. PT ALSO BEGAN SMACKING HERSELF REPEATEDLY. SENT MESSAGE TO BRONSON ASCENCIO NP, RECEIVED ORDER FOR ZYPREXA 10 MG IM X1, WILL CONTINUE TO MONITOR FOR ANY CHANGES.
[2020-02-16] MEDS ORDERED: OLANZAPINE 10 MG VIAL IM ONE (14:56)
--- NOTE | 2020-02-16 15:19 | NUR ---
RN NOTES 10 MG ZYPREXA IM ADMINISTERED. 3 STAFF IN THE ROOM AT TIME OF INJECTION, TATUM GROVER AND SOON CHARGE NURSE. PT HAS STOPPED HURTING HERSELF AND APPEARS MORE CALM AT THIS TIME. WILL CONTINUE TO MONITOR
[2020-02-16 16:00] VITALS: BP 127/75
--- NOTE | 2020-02-16 19:21 | NUR ---
RN CLOSING NOTES PT IS RESTING COMFORTABLY IN BED, ENDORSED TO NIGHTSHIFT RN FOR JUAN.
[2020-02-16] MEDS: QUETIAPINE FUMARATE 100 MG TABLET PO SCH (21:40)
[2020-02-16] MEDS: HYDROCODONE/APAP 5/325MG 1 EACH TABLET PO PRN (21:43)
[2020-02-17] MEDS: PIPERACILLIN /TAZOBACTAM 3.375 G in IV D5W 50 ML IV SCH ×4 (05:28→23:11)
[2020-02-17] MEDS: VANCOMYCIN 1.5 GM in IV D5W 500 ML IV SCH ×2 (06:00→23:54)
--- NOTE | 2020-02-17 06:32 | NUR ---
RN notes Patient is in bed, awake, alert but very agitated, shouting and yelling with episode of hurting self by punching face and head. Vital signs wnl. Vanco for 6am was not given yet. Waiting for Vanco trough result. Awake almost the whole night with 5 to 15mins sleep intervals. Kept clean and dry. Waiting for covid result. Will endorse to next shift for continuity of care
--- NOTE | 2020-02-17 07:37 | NUR ---
MS RN OPENING NOTES RECEIVED PATIENT IN BED, AWAKE, AGITATED AND SCREAMING FOR BREAKFAST. PATIENT WAS INFORMED THAT BREAKFAST IS COMING SOON BUT SHE KEPT SCREAMING "GIVE ME BREAKFAST". PATIENT BREATHING ON ROOM AIR AND SATURATING WELL AT 98%. NO COMPLAINS OF PAIN. RFA IV ACCESS G # 20 PRESENT AND INTACT AT THIS TIME. SAFETY PRECAUTIONS IN PLACE; BED IN LOW POSITION AND LOCKED, RAILS UP X2, CALL LIGHT WITHIN REACH. WILL CONTINUE TO MONITOR PATIENT.
[2020-02-17 08:00] VITALS: BP 137/75
[2020-02-17] MEDS: FUROSEMIDE 40 MG TABLET PO SCH ×2 (08:17→16:59)
[2020-02-17] MEDS: PANTOPRAZOLE 40 MG TABLET.DR PO SCH (08:17)
[2020-02-17] MEDS: OLANZAPINE 10 MG TABLET PO SCH ×2 (08:17→16:58)
[2020-02-17] MEDS: POTASSIUM CHLORIDE 10 MEQ TABLET.SA PO SCH (08:17)
[2020-02-17] MEDS: PERPHENAZINE 2 MG TABLET PO SCH ×2 (08:18→17:43)
[2020-02-17 10:37] LABS: CREATININE 0.9 mg/dL (0.6-1.3); POTASSIUM 5.3 mmol/L (3.5-5.1)
--- NOTE | 2020-02-17 11:04 | NUR ---
MS RN NOTES PATIENT VERBALLY ABUSIVE TOWARDS GROOVING LATHE TENDER AND RN. SCREAMING AND YELLING. PATIENT SOUNDS CONGESTED AND WITH SOB WHILE SCREAMING. O2 AT 92-94% ROOM AIR. REFUSES ANY OXYGEN OR OXIMETER TO THE FINGER. MD NOTIFIED.
--- NOTE | 2020-02-17 11:15 | NUR ---
WOUND CARE CONSULT: REVIEWED CHART, NURSING DOCUMENTATION AND PHOTOS WHICH SHOW REDNESS TO LOWER LEGS AND WOUNDS, PRESENT ON ADMISSION. RECOMMEND DPM CONSULT. DR BRYSON NOTIFIED OF CONSULT REQUEST. PT IS ON USHA ISOFLEX LOW AIRLOSS BED. SKIN PROTECTION RECOMMENDATIONS DISCUSSED WITH NURSING STAFF. WILL SEE PRBernardino WAGNER IN AGREEMENT WITH PLAN OF CARE.
[2020-02-17] MEDS: HYDROCODONE/APAP 5/325MG 1 EACH TABLET PO PRN (11:34)
--- NOTE | 2020-02-17 11:38 | NUR ---
MS RN NOTES PATIENT COMPLAINING OF PAIN 7/10 IN HER LEGS. PRN PAIN MEDICATION NORCO 5-325 ADMINISTERED. WILL REASSESS.
[2020-02-17 16:08] VITALS: BP 123/69
[2020-02-17 17:31] LABS: ABG BASE EXCESS 2.6 mmol/L; ABG PCO2 42.8 mmHg (35.0-45.0); ABG PH 7.424 (7.350-7.450); ABG PO2 63.1 mmHg (75.0-100.0); AaDO2 35.4 mmHg; COHb 0.8 % (0.5-1.5); MetHb 0.5 % (0.0-1.5); O2Hb 90.8 % (94.0-97.0); SITE, ABG Right Brachial; VENT MODE, BG room air
--- NOTE | 2020-02-17 18:46 | NUR ---
MS RN CLOSING NOTES PATIENT IN BED, AWAKE. DURING THE SHIFT AGITATED AND SCREAMING. HAS EPISODES OF BEING CALM BT THEN STARTS YELLING AGAIN. PATIENT BREATHING ON ROOM AIR AND SATURATING AT 95%. ABGs DRAWN; AWAITING RESULTS. PAIN TREATED WITH PRN NORCO. RFA IV ACCESS G # 20 PRESENT AND INTACT AT THIS TIME. ALL NEEDS ATTENDED TO THROUGHOUT THE DAY. WOUND DRESSING DONE. SAFETY PRECAUTIONS IN PLACE; BED IN LOW POSITION AND LOCKED, RAILS UP X2, CALL LIGHT WITHIN REACH. WILL ENDORSE TO [employer] REPORTER NURSE.
--- NOTE | 2020-02-17 19:25 | NUR ---
MS GENA OPEN NOTES PATIENT IS WATCHING TV IN BED. ON RA SATURATING AT 95%, NO SOB/ ACUTE RESPIRATORY DISTRESS NOTED. NO COMPLAINTS OF PAIN AT THE MOMENT. IV ON R FOREARM #20G IS PATENT AND INTACT. BED IS IN LOWEST LOCKED POSITION WITH SIDE RAILS UP X3, SEMI FOWLERS. CALL LIGHT IS WITHIN REACH. WILL CONTINUE TO MONITOR.
[2020-02-17] MEDS: QUETIAPINE FUMARATE 100 MG TABLET PO SCH (21:13)
--- NOTE | 2020-02-18 00:25 | NUR ---
MS RN NOTES ENDORSED REPORT TO GENA MEYERS FOR JUAN.
--- NOTE | 2020-02-18 00:30 | NUR ---
RN NOTE RECEIVED PATIENT AROUND THIS TIME IN BED, SLEEPING COMFORTABLY. ON ISOLATION FOR R/O COVID. SITTER NEXT TO PATIENT'S ROOM. WILL CONTINUE TO MONITOR.
[2020-02-18 04:00] VITALS: BP 116/60
[2020-02-18] MEDS: PIPERACILLIN /TAZOBACTAM 3.375 G in IV D5W 50 ML IV SCH ×3 (05:00→17:01)
[2020-02-18 06:42] LABS: CALCIUM, SERUM 8.9 mg/dL (8.5-10.1); CREATININE 0.9 mg/dL (0.6-1.3); POTASSIUM 3.4 mmol/L (3.5-5.1)
--- NOTE | 2020-02-18 06:47 | NUR ---
RN NOTE PATIENT REMAINED STABLE THROUGHOUT THE NIGHT. NO SIGNIFICANT CHANGES NOTED. ALL NEEDS ATTENDED AND MET. WILL ENDORSE TO AM SHIFT RN FOR CONTINUATION OF CARE.
--- NOTE | 2020-02-18 07:27 | NUR ---
MS RN OPEN NOTES PATIENT IS WATCHING TV IN BED. ALERT OORINTED AT THIS TIME ON RA , NO SOB/ ACUTE RESPIRATORY DISTRESS NOTED. NO COMPLAINTS OF PAIN AT THE MOMENT. IV ON R FOREARM #20G IS PATENT AND INTACT. BED IS IN LOWEST LOCKED POSITION CALL LIGHT IS WITHIN REACH. WILL CONTINUE TO MONITOR. SITTER AT BEDSIDE ,
[2020-02-18] MEDS: PANTOPRAZOLE 40 MG TABLET.DR PO SCH (07:44)
[2020-02-18 08:00] VITALS: BP 133/76
[2020-02-18] MEDS: PERPHENAZINE 2 MG TABLET PO SCH ×2 (08:00→18:00)
[2020-02-18] MEDS: POTASSIUM CHLORIDE 10 MEQ TABLET.SA PO SCH (08:00)
[2020-02-18] MEDS: FUROSEMIDE 40 MG TABLET PO SCH ×2 (08:00→16:22)
[2020-02-18] MEDS: OLANZAPINE 10 MG TABLET PO SCH ×2 (08:00→16:22)
[2020-02-18] MEDS ORDERED: HYDROGEL DRESSING 90 GM TUBE TP SCH (09:00)
--- NOTE | 2020-02-18 09:58 | NUR ---
WOUND CARE FOLLOW UP: REVIEWED CHART, NURSING DOCUMENTATION AND PHOTOS WHICH ALSO SHOW RASHES TO ABDOMINAL/GROIN FOLDS AND BREASTFOLDS, PRESENT ON ADMISSION. RECOMMENDATIONS MADE FOR SKIN PROTECTION AND SKIN CARE. DISCUSSED WITH NURSING STAFF. WILL SEE PRN. WGANER IN AGREEMENT WITH PLAN OF CARE.
--- NOTE | 2020-02-18 10:04 | NUR ---
CHAIRMAN OF THE BOARD NOTE SEENM BY IMER WOUND CARENURSE AWARE THAT PATIEMT HASRASGWS ON BITH BREASST AND ABDOMINAL FOLDSWITH NEW ORDER GIVEN WILL F\U Addendum: 02/18/20 at 1005 by DIONE HICKS RN MS RN NOTE SEEN BY IMER WOUND CARE NURSE, AWARE THAT PATIENT HAS RASHES ON ABDOMINAL FOLDS AND BOTH BREASTS, WITH NEW ORDER GIVEN , WILL F\I
--- NOTE | 2020-02-18 10:41 | NUR ---
MS RN NOTE ALL NEEDS ATTENDED ,TURN REPOSITION ,KEEP CLEAN DRY , NEW HL ON RT AC CRICKET 22 INSERTED WITH GOOD BLOOD RETURN , WILL CONT TO MONITOR
--- NOTE | 2020-02-18 11:42 | NUR ---
MS RN NOTE PER DR PITT PATIENT STILL ON HOLD X14 DAYS , WILL F\U
--- NOTE | 2020-02-18 12:18 | NUR ---
MS RN NOTE K 3.4 ,QUE JAY NOTIFIED DNP WITH NEW ORDER KCL GIVEN, WILL F\U
[2020-02-18] MEDS ORDERED: POTASSIUM CHLORIDE 20 MEQ TAB.PRT.SR PO ONE (12:30)
--- NOTE | 2020-02-18 13:55 | NUR ---
MS RN NOTE ABLE TO URINATE WELL, KEEP CLEAN DRY, ALL NEEDS ATTENDED ,CALL LIGHT WITHIN REACH
--- NOTE | 2020-02-18 15:09 | NUR ---
MS RN NOTE PATIENT IS NEGATIVE FOR COVID- 19 DR GREY DNP NOTIFIED
[2020-02-18 16:00] VITALS: BP_SYST 118; BP_SYST 133; BP_DIAS 55; BP_DIAS 76
[2020-02-18] MEDS ORDERED: CEPH-570 PO (16:54)
[2020-02-18] MEDS ORDERED: LINE600T13 PO (16:54)
[2020-02-18] MEDS ORDERED: CLOTRIMAZOLE 1% 15 GM TUBE TP SCH (17:00)
--- NOTE | 2020-02-18 17:00 | NUR ---
MS RN NOTE PER DR GREY DNP OK TO TRANSFER TO [facility]
--- NOTE | 2020-02-18 17:00 | NUR ---
ms rn note called to pharmacy notified that Trilafon 8 mg not available in [facility] or [facility] , stated that will bring soon ,notified that patient will be transferred to [facility]
[2020-02-18] MEDS: VANCOMYCIN 1.5 GM in IV D5W 500 ML IV SCH (18:00)
--- NOTE | 2020-02-18 18:00 | NUR ---
ms rn note drug Trilafon still not available, patient need to transfer to [facility] also Vanco iv unable to administered due to patient need to transfer to [facility]
--- NOTE | 2020-02-18 18:37 | NUR ---
MS RN NOTE TRANSFERRED TO [facility] ORDERED WITH STABLE CONDITION ,REPORT GIVEN TO FRANCO AVERY , NOTIFIED THAT VANCO IV NOT ADMINISTERED AT 1800 DUE TO PATIENT NEED TO TRANSFER TO [facility] ,STATED THAT WILL F\U
[2020-02-19 16:13] LABS: CALCIUM, SERUM 9.2 mg/dL (8.5-10.1); CREATININE 0.9 mg/dL (0.6-1.3)
[2020-02-21 11:42] LABS: CALCIUM, SERUM 8.8 mg/dL (8.5-10.1); CREATININE 0.8 mg/dL (0.6-1.3); POTASSIUM 3.6 mmol/L (3.5-5.1)
== END 2020-02-18 18:40 | DRG 300 ==
LOC: ER 16:52 → MEDSG1 18:51
PROVIDERS: ADMIT Nurse Practitioner Acute Care; ATTEND Hospitalist
DX: I87.311 Chronic venous hypertension (idiopathic) with ulcer of right lower extremity (principal); L03.115 Cellulitis of right lower limb; F20.0 Paranoid schizophrenia; Z68.43 Body mass index [BMI] 50.0-59.9, adult; I50.32 Chronic diastolic (congestive) heart failure; L97.819 Non-pressure chronic ulcer of other part of right lower leg with unspecified severity; L03.116 Cellulitis of left lower limb; F32.9 Major depressive disorder, single episode, unspecified; F29 Unspecified psychosis not due to a substance or known physiological condition; Z73.6 Limitation of activities due to disability; F41.9 Anxiety disorder, unspecified; E66.01 Morbid (severe) obesity due to excess calories; I11.0 Hypertensive heart disease with heart failure; L30.4 Erythema intertrigo; G89.4 Chronic pain syndrome
CPT/HCPCS: 36415; 36600; 71045-TC; 71250-TC; 73590-TC; 80048-TC; 80061-TC; 80076-TC; 80202-TC; 80305; 81000-TC; 82803-TC; 83605-TC; 83735-TC; 84100-TC; 85025-TC; 87040-TC; 87081-TC; A6248; A6407; G0378; G0480; J2543; J3370; J3490; J7060; Q0175; U0003-CS

== ENCOUNTER 2020-02-18 17:05 | Inpatient (IN) | payer MEDICARE, OTHER ==
[~2020-02-18] VITALS: Ht 160 cm; Wt 134.7 kg
[~2020-02-18 17:05] MED LIST changes: -BUSP10TA3 PO; +CEPH-570 PO; -DIVA-78 PO; +LINE600T13 PO; +OLAN10TA3 MT; +QUET300T2 PO
[2020-02-18 20:05] VITALS: BP 130/61
[2020-02-18] MEDS ORDERED: MAG HYDROX/AL HYDROX/SIMETH 30 ML UDC PO PRN (20:30)
[2020-02-18] MEDS ORDERED: BLOOD SUGAR DIAGNOSTIC 1 EACH STRIP IN ONE (20:30)
[2020-02-18] MEDS ORDERED: TEMAZEPAM 7.5 MG CAPSULE PO PRN (20:30)
[2020-02-18] MEDS ORDERED: ACETAMINOPHEN 325 MG TABLET PO PRN (20:30)
[2020-02-18] MEDS ORDERED: MAGNESIUM HYDROXIDE 30 ML UDC PO PRN (20:30)
[2020-02-19 00:30] VITALS: BP 130/61
--- NOTE | 2020-02-19 00:34 | NUR ---
GPS ADMISSION NOTE: RECEIVED PATIENT FROM [facility], INITIALLY FROM HOME. PATIENT ON A 5250 HOLD ^03/03/2020. PER HOLD PATIENT HAS BEEN DISORGANIZED, HAS AUDITORY HALLUCINATIONS, AND UNABLE TO CARE FOR SELF. PT WAS ORIGINALLY ON 5150 HOLD BECAUSE PT NINOSKA CALLED [facility] ER TO EVALUATE PT D/T INCREASED AGITATION AND AGGRESSIVE BEHAVIOR. UPON FACE TO FACE ASSESSMENT, PT IS A/O X2, BIZARRE, SCREAMING, YELLING, DISORGANIZED, AGITATED, AGGRESSIVE, COMBATIVE AND RESPONDING TO INTERNAL STIMULI. NO S/S OF ACUTE DISTRESS AT THIS TIME. NO SOB NOTED. PATIENT'S BREATHING IS EVEN AND UNLABORED WITH EQUAL RISE AND FALL OF THE CHEST. ON ROOM AIR WITH SPO2 OF 96%. PATIENT ASSISTED WITH TURNING AND REPOSITIONING Q2HR AND PRN FOR COMFORT AND INCREASED CIRCULATION. PATIENT HAS NO NEEDS AT THIS TIME. PATIENT DENIES SI, HI AT THIS TIME. SKIN ASSESSMENT DONE AND PICTURES TAKEN AND PLACED IN CHART. ACCU-CHEK DONE, PT BLOOD SUGAR IS 136MG/DL. PATIENT REFUSED TO SIGN ANY ADMISSION PAPERWORK. PATIENT ADVISED OF HER HOLD AND PT RIGHTS BOOKLET GIVEN. PATIENT IS UNDER THE PSYCHIATRIC CARE OF DR. PITT AND MEDICAL CARE OF [facility]. PATIENT BELONGINGS WERE INVENTORIED AND CHECKED FOR CONTRABAND. NO CONTRABAND NOTED. PATIENT ADVANCED DIRECTIVE PREFERENCE, IMMUNIZATIONS QUESTIONNAIRE, AND OTHER NECESSARY PAPERWORK COMPLETED. PATIENT SKIN ASSESSMENT COMPLETED. PATIENT ORIENTED TO ROOM, FLOOR/UNIT AND STAFF. PM CARE PROVIDED AND SOILED DIAPER CHANGED. PT COMFORTABLE. SAFETY MEASURES INITIATED. CARE PLAN STARTED. PATIENT BED IN LOW LOCKED POSITION WITH BED ALARM ON AND SIDE RAILS UP. CALL LIGHT WITHIN REACH OF THE PATIENT. WILL CONTINUE TO MONITOR AND REASSESS FOR ANY CHANGES [id number]. WILL ATTEND TO ALL MD ADMITTING ORDERS.
[2020-02-19 07:34] LABS: THYROID STIMULATING HORMONE 4.358 uIU/mL (0.358-3.74)
[2020-02-19 07:46] LABS: CREATININE 0.8 mg/dL (0.6-1.3)
[2020-02-19 08:00] VITALS: BP 143/73
--- NOTE | 2020-02-19 10:00 | NUR ---
WOUND CARE CONSULT: PT REFUSED SKIN ASSESSMENT. PT IS SARCASTIC AND ANGRY AT THIS TIME. PT HAS BEEN FOLLOWED BY PODIATRY TEAM. DR BRYSON NOTIFIED OF GPS ADMISSION. RECOMMENDATIONS MADE FOR RASHES TO SKIN FOLDS. DISCUSSED WITH NURSING STAFF. WILL SEE PRN. WAGNER IN AGREEMENT WITH PLAN OF CARE.
--- NOTE | 2020-02-19 10:00 | NUR ---
RN-CO: Patient is verbally abusive to staff, yelling and screaming. Ativan 0.5 mg PO given by primary RN.
[2020-02-19] MEDS: LORAZEPAM 0.5 MG TABLET PO PRN (10:18)
--- NOTE | 2020-02-19 10:49 | NUR ---
PSYCHOSOCIAL NOTE: I, Colleen Pickard LOAD PLANNER, attest to the patients previous psychosocial information dated 01/24/20 Update On Events leading to Admission and Discharge Plan: Pt has returned to the hospital within eight days of her previous discharge date of 02/07/20. Per psychiatric hold, pt was BIB [facility] [phone] due to increased agitation and aggressive behavior. Per hold, pt was screaming, yelling, delusional, and paranoid. The current plan is to increase the patient on her medications and discharge her to a [facility] Facility as pt cannot be safely managed at home. The pt appeared to be in a psychotic state, yelling and talking to herself. Pt is unable to engage in conversation with SW. Pt appears with aggressive/dysphoric mood and blunted affect. Pt appeared to be non-ambulatory at this time, pt is well-groomed and appropriately dressed. SW will work with the pt and the MD regarding appropriate discharge planning. SW will form a safe and proper discharge.
--- NOTE | 2020-02-19 11:01 | NUR ---
HEP LOCKS LEFT FROM FORMER FLOOR REMOVED.NOTED SMALL IRRITATION TO RT. OF ANTECUBITAL IV SITE. PHOTO TAKEN AND PLACED IN CHART.VIEWED BY DR. ESCOBAR.NO ORDERS GIVEN.
[2020-02-19] MEDS: Z GUARD REMEDY 2 OZ OINT TP SCH (12:12)
[2020-02-19] MEDS: CLOTRIMAZOLE 1% 15 GM TUBE TP SCH ×2 (12:12→18:49)
[2020-02-19] MEDS: CEPHALEXIN MONOHYDRATE 500 MG CAPSULE PO SCH ×2 (12:29→18:00)
[2020-02-19] MEDS: POTASSIUM CHLORIDE 10 MEQ TABLET.SA PO SCH (12:29)
--- NOTE | 2020-02-19 13:01 | NUR ---
RN-CO: PATIENT WAS SEEN BY DR PITT VIA TELEMED. WITH ORDERS NOTED.
[2020-02-19] MEDS: QUETIAPINE FUMARATE 100 MG TABLET PO SCH ×2 (14:01→20:56)
[2020-02-19] MEDS: LINEZOLID 600 MG TABLET PO SCH ×2 (14:02→17:00)
[2020-02-19] MEDS: OLANZAPINE 10 MG TABLET PO SCH ×2 (14:02→20:56)
[2020-02-19] MEDS: DIVALPROEX SODIUM 500 MG TABLET.DR PO SCH ×2 (14:02→17:00)
[2020-02-19 16:00] VITALS: BP 126/75
--- NOTE | 2020-02-19 16:09 | NUR ---
INDIVIDUAL INTERVENTION: Pt is inappropriate for group at this time. Pt is yelling and screaming and repeating nonsensical things. Pt was given medication for agitation.
[2020-02-19] MEDS: FUROSEMIDE 40 MG TABLET PO SCH (17:00)
--- NOTE | 2020-02-19 18:30 | NUR ---
EXTREMELY GROGGY AFTER DINNER.LIS. MEDS HELD.
[2020-02-19 19:58] VITALS: BP 146/70
[2020-02-20] MEDS: CEPHALEXIN MONOHYDRATE 500 MG CAPSULE PO SCH ×4 (00:15→17:09)
[2020-02-20 08:00] VITALS: BP 119/48
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
[2020-02-20] MEDS: DIVALPROEX SODIUM 500 MG TABLET.DR PO SCH ×3 (08:43→17:09)
[2020-02-20] MEDS: OLANZAPINE 10 MG TABLET PO SCH ×2 (08:43→17:09)
[2020-02-20] MEDS: FUROSEMIDE 40 MG TABLET PO SCH ×2 (08:43→17:09)
[2020-02-20] MEDS: LINEZOLID 600 MG TABLET PO SCH ×2 (08:43→17:10)
[2020-02-20] MEDS: POTASSIUM CHLORIDE 10 MEQ TABLET.SA PO SCH (08:43)
[2020-02-20] MEDS: QUETIAPINE FUMARATE 100 MG TABLET PO SCH ×2 (08:43→17:11)
[2020-02-20] MEDS: Z GUARD REMEDY 2 OZ OINT TP SCH (08:44)
[2020-02-20] MEDS: HYDROGEL DRESSING 90 GM TUBE TP SCH (08:44)
[2020-02-20] MEDS: CLOTRIMAZOLE 1% 15 GM TUBE TP SCH ×2 (09:12→17:10)
[2020-02-20] MEDS: LORAZEPAM 0.5 MG TABLET PO PRN (12:43)
--- NOTE | 2020-02-20 12:43 | NUR ---
RN NOTES: AGITATION/ RESTLESS PATIENT BEGAN TO BE RESTLESS AND THREW LUNCH TRAY ACROSS THE ROOM. MANI, [employer] ARCHITECT AT BEDSIDE TO ASSIST WITH RELAXATION TECHNIQUES. PATIENT BEGAN TO YELL MORE. ADMINISTERED PRN ATIVAN PO 0.5 mg ORDERED. WILL CONTINUE TO MONITOR PATIENT.
--- NOTE | 2020-02-20 15:50 | NUR ---
INDIVIDUAL INTERVENTION: Pt is not appropriate for group therapy as pt is psychotic and talking to herself. Pt becomes easily agitated and begins yelling. Pt is unable to engage in an appropriate conversation at this time.
[2020-02-20 16:00] VITALS: BP 123/65
[2020-02-20 19:53] VITALS: BP 129/71
[2020-02-20 20:10] VITALS: BP 129/71
--- NOTE | 2020-02-20 21:05 | NUR ---
REFUSED SKIN ASSESSMENT PATIENT REFUSED SKIN ASSESSMENT X 3, YELLING/SCREAMING WHEN REAPPROACHED, CURSING USING BAD WORDS TOWARDS NURSE & REFUSED TO BE TOUCHED AT ALL. WILL KEEP DRY AND MONITOR FOR ANY CHANGES
[2020-02-21] MEDS: CEPHALEXIN MONOHYDRATE 500 MG CAPSULE PO SCH ×4 (00:14→17:38)
[2020-02-21] MEDS: LORAZEPAM 0.5 MG TABLET PO PRN ×2 (05:16→20:38)
--- NOTE | 2020-02-21 05:16 | NUR ---
GPS RN NOTE: ANXIETY/AGITATION PATIENT IS AGITATED, YELLING, SCREAMING, ANXIOUS, PARANOID, RESTLESS, HYPERVERBAL AT THIS TIME, CURSING STAFF. PRN ATIVAN 0.5 MG 1 TAB PO GIVEN, WILL CONTINUE TO MONITOR FOR EFFECTIVENESS.
--- NOTE | 2020-02-21 06:32 | NUR ---
GPS RN NOTE PATIENT DID CALM DOWN FOR A WHILE AFTER GIVING ATIVAN, BUT STARTED YELLING, SCREAMING, CURSING, THREW WATER PITCHER ON THE FLOOR, KEEPS REPEATING," I WANT MY FREEDOM, I WANT TO BE DISCHARGED." STAYED WITH THE PATIENT, EMOTIONAL SUPPORT PROVIDED. SNACKS & FLUIDS GIVEN & TOLERATED WELL. STAYED WITH THE PT. & TALKED TO THE PATIENT FOR A WHILE WHICH HELPED HER TO CALM DOWN. PATIENT IS CALM AT THIS TIME. WILL CONTINUE TO CHECK ON THE PATIENT FREQUENTLY FOR EMOTIONAL SUPPORT, BEHAVIOR MONITORING & SAFETY.
--- NOTE | 2020-02-21 06:55 | NUR ---
GPS RN NOTE: PATIENT IS CALM & SLEEPING AT THIS TIME. WILL ENDORSE TO AM RN FOR CONTINUITY OF CARE.
[2020-02-21] MEDS: HYDROGEL DRESSING 90 GM TUBE TP SCH (09:03)
[2020-02-21] MEDS: CLOTRIMAZOLE 1% 15 GM TUBE TP SCH ×2 (09:04→17:35)
[2020-02-21] MEDS: Z GUARD REMEDY 2 OZ OINT TP SCH (09:05)
[2020-02-21] MEDS: OLANZAPINE 10 MG TABLET PO SCH ×2 (09:07→17:38)
[2020-02-21] MEDS: POTASSIUM CHLORIDE 10 MEQ TABLET.SA PO SCH (09:07)
[2020-02-21] MEDS: FUROSEMIDE 40 MG TABLET PO SCH ×2 (09:07→17:00)
[2020-02-21] MEDS: DIVALPROEX SODIUM 500 MG TABLET.DR PO SCH ×3 (09:07→17:38)
[2020-02-21] MEDS: QUETIAPINE FUMARATE 100 MG TABLET PO SCH ×2 (09:08→17:38)
[2020-02-21] MEDS: LINEZOLID 600 MG TABLET PO SCH ×2 (09:09→17:36)
[2020-02-21 16:00] VITALS: BP 101/58
--- NOTE | 2020-02-21 19:20 | NUR ---
RECEIVED PT. RESTING IN BED, AWAKE, ALERT . BLUNTED AFFECT, AGITATED, DISORGANIZED, CURSING, DISORIENTED, AGGRESSIVE, LABILE, CONFUSED, DISHEVELED. SCREAMS & YELLS AT TIMES, TALKING TO HERSELF. NO S/S OF DISTRESS. DENIES SI/HI AT THIS TIME. PT DENIES SI AT THIS TIME. OFFERED FLUID AND SNACK BUT REFUSED.SAFETY AND FALL PRECAUTION WILL CONTINUE TO MONITOR PT Q 15 MIN FOR MOOD, SAFETY AND BEHAVIOR.
--- NOTE | 2020-02-21 19:50 | NUR ---
RN NOTES :COLLECTED COVID-19 SWAB & SENT TO LAB.
[2020-02-21 20:04] VITALS: BP 141/87
--- NOTE | 2020-02-21 20:39 | NUR ---
GPS RN NOTE: ANXIETY/AGITATION PATIENT IS AGITATED, YELLING, SCREAMING, ANXIOUS, PARANOID, RESTLESS, HYPERVERBAL AT THIS TIME, CURSING STAFF. PRN ATIVAN 0.5 MG 1 TAB PO GIVEN, WILL CONTINUE TO MONITOR .
[2020-02-22] MEDS: CEPHALEXIN MONOHYDRATE 500 MG CAPSULE PO SCH ×5 (00:52→23:00)
--- NOTE | 2020-02-22 01:34 | NUR ---
REFUSED TURNING/REPOSITIONING/OFF LOAD HEELS PATIENT IS AWAKE, HAD SNACK, IN SEMI ROMAN'S POSITION. PATIENT STARTED YELLING, CHECKED ON THE PT. & SHE STATED HER HEELS ARE BURNING BUT PATIENT REFUSED SKIN ASSESSMENT & ONLY WANTED TO PUT LOTION. LOTION APPLIED. ENCOURAGED PATIENT TO USE EXTRA PILLOWS UNDER HER HEELS FOR OFF LOADING BUT PATIENT GOT AGITATED, AGGRESSIVE & REFUSED. OFFERED PATIENT TO BE REPOSITIONED, PT. ASKED THE NURSE TO LEAVE HER ROOM, CURSING USING BAD WORDS & REFUSED ASSISTANCE. WILL CONTINUE TO MONITOR.
[2020-02-22 08:00] VITALS: BP 116/71
[2020-02-22] MEDS: LINEZOLID 600 MG TABLET PO SCH ×2 (08:07→18:18)
[2020-02-22] MEDS: FUROSEMIDE 40 MG TABLET PO SCH ×2 (08:07→18:18)
[2020-02-22] MEDS: OLANZAPINE 10 MG TABLET PO SCH ×2 (08:07→18:18)
[2020-02-22] MEDS: DIVALPROEX SODIUM 500 MG TABLET.DR PO SCH ×3 (08:07→18:18)
[2020-02-22] MEDS: POTASSIUM CHLORIDE 10 MEQ TABLET.SA PO SCH (08:08)
[2020-02-22] MEDS: HYDROGEL DRESSING 90 GM TUBE TP SCH (08:08)
[2020-02-22] MEDS: QUETIAPINE FUMARATE 100 MG TABLET PO SCH ×2 (08:08→18:18)
[2020-02-22] MEDS: CLOTRIMAZOLE 1% 15 GM TUBE TP SCH ×2 (08:08→18:15)
[2020-02-22] MEDS: Z GUARD REMEDY 2 OZ OINT TP SCH (08:09)
[2020-02-22 16:00] VITALS: BP 128/64
[2020-02-22] MEDS: DIVALPROEX SODIUM 250 MG TABLET.DR PO SCH (21:48)
[2020-02-23 05:43] VITALS: BP 148/47
[2020-02-23] MEDS: CEPHALEXIN MONOHYDRATE 500 MG CAPSULE PO SCH ×4 (05:51→23:10)
[2020-02-23 08:00] VITALS: BP 138/85
[2020-02-23] MEDS: LINEZOLID 600 MG TABLET PO SCH ×2 (08:18→16:38)
[2020-02-23] MEDS: QUETIAPINE FUMARATE 100 MG TABLET PO SCH ×2 (08:19→16:38)
[2020-02-23] MEDS: DIVALPROEX SODIUM 500 MG TABLET.DR PO SCH ×3 (08:19→16:38)
[2020-02-23] MEDS: OLANZAPINE 10 MG TABLET PO SCH ×2 (08:19→16:38)
[2020-02-23] MEDS: FUROSEMIDE 40 MG TABLET PO SCH ×2 (08:19→16:38)
[2020-02-23] MEDS: POTASSIUM CHLORIDE 10 MEQ TABLET.SA PO SCH (08:19)
[2020-02-23] MEDS: HYDROGEL DRESSING 90 GM TUBE TP SCH (08:57)
[2020-02-23] MEDS: Z GUARD REMEDY 2 OZ OINT TP SCH (08:58)
[2020-02-23] MEDS: CLOTRIMAZOLE 1% 15 GM TUBE TP SCH ×2 (08:59→16:39)
--- NOTE | 2020-02-23 09:00 | NUR ---
RN NOTE- PT LOUD AGGRESSIVE YELLING POINTING AT 'PEOPLE' IN THE CORNERS THAT AREN'T THERE. FEELS PERSECUTED BY SOMEONE NAMED MILLI. MED COMPLIANT PO INTAKE GOOD,. AMBULATED PT IN SOLORIO W FWW TOLERATED WELL. WOUND CARE DONE TO LOWER RT LEG.
--- NOTE | 2020-02-23 15:00 | NUR ---
STALLION MANAGER NOTE- DRESSING CHANGE PERFORMED TO RLE AT THIS TIME. CLEANSED W NS IODOFORM GAUZE AND HYDROGEL APPLIED, 4X4 PLACED OVER TOP AND WRAPPED W KERLIX. TOLERATED WELL. PINK GRANULATION TISSUE, MINOR ERYTHEMA AND EDEMA THOUGH NO WARMTH OR PURULENCE. FOLLOW UP PRN
[2020-02-23 16:00] VITALS: BP 126/70
[2020-02-23 20:16] VITALS: BP 132/80
[2020-02-23 20:19] VITALS: BP 132/80
[2020-02-23] MEDS: DIVALPROEX SODIUM 250 MG TABLET.DR PO SCH (21:29)
--- NOTE | 2020-02-23 22:45 | NUR ---
GPS RN NOTE: PT. REFUSED TO TAKE PICTURES FOR SKIN ASSESSMENT. SAYS " I DON'T WANT PICTURES TAKEN." WILL ENDORSE TO DAY SHIFT NURSE.
[2020-02-24] MEDS: CEPHALEXIN MONOHYDRATE 500 MG CAPSULE PO SCH ×3 (05:42→17:25)
[2020-02-24 08:00] VITALS: BP 113/66
[2020-02-24] MEDS: FUROSEMIDE 40 MG TABLET PO SCH ×2 (08:29→17:25)
[2020-02-24] MEDS: OLANZAPINE 10 MG TABLET PO SCH ×2 (08:29→17:25)
[2020-02-24] MEDS: LINEZOLID 600 MG TABLET PO SCH ×2 (08:29→17:25)
[2020-02-24] MEDS: POTASSIUM CHLORIDE 10 MEQ TABLET.SA PO SCH (08:29)
[2020-02-24] MEDS: DIVALPROEX SODIUM 500 MG TABLET.DR PO SCH ×3 (08:29→17:25)
[2020-02-24] MEDS: QUETIAPINE FUMARATE 100 MG TABLET PO SCH ×2 (08:30→17:25)
[2020-02-24] MEDS: Z GUARD REMEDY 2 OZ OINT TP SCH (08:44)
[2020-02-24] MEDS: HYDROGEL DRESSING 90 GM TUBE TP SCH (08:44)
[2020-02-24] MEDS: CLOTRIMAZOLE 1% 15 GM TUBE TP SCH ×2 (08:44→17:25)
--- NOTE | 2020-02-24 09:27 | NUR ---
SNF REFERRAL: LASHAE faxed SNF referral to [facility] Address: [address] [place] [address] and [facility] Address: [address] [place] [address] for review.
--- NOTE | 2020-02-24 12:18 | NUR ---
SNF CONTACT: SW received a call from Marni, center rep at [facility] Address: [address] [place] [address] who stated pt was not accepted to the facility due to pts psychotic history and not having capacity to make her own decisions.
--- NOTE | 2020-02-24 15:02 | NUR ---
INDIVIDUAL INTERVENTION: SW attempted to meet with pt to discuss his discharge plan. Pt was asleep and not easily aroused by verbal cues.
[2020-02-24 16:00] VITALS: BP 126/77
--- NOTE | 2020-02-24 19:35 | NUR ---
GPS RN NOTE PATIENT WANTED TO WALK WITH HER WALKER, ASSISTED PATIENT WITH WALKING FROM HER ROOM TO THE END OF THE HALLWAY & CAME BACK TO HER ROOM, WALKS VERY SLOW, 2 NURSES STANDBY ASSIST PROVIDED & WENT BACK TO BED SAFELY.
[2020-02-24 19:59] VITALS: BP 137/72
[2020-02-24] MEDS: LORAZEPAM 0.5 MG TABLET PO PRN (20:05)
[2020-02-24] MEDS: DIVALPROEX SODIUM 250 MG TABLET.DR PO SCH (21:02)
[2020-02-25] MEDS: CEPHALEXIN MONOHYDRATE 500 MG CAPSULE PO SCH ×4 (00:43→17:29)
[2020-02-25 08:00] VITALS: BP 131/59
[2020-02-25] MEDS: LINEZOLID 600 MG TABLET PO SCH ×2 (08:30→17:22)
[2020-02-25] MEDS: DIVALPROEX SODIUM 500 MG TABLET.DR PO SCH ×3 (08:31→17:22)
[2020-02-25] MEDS: POTASSIUM CHLORIDE 10 MEQ TABLET.SA PO SCH (08:31)
[2020-02-25] MEDS: QUETIAPINE FUMARATE 100 MG TABLET PO SCH ×2 (08:31→17:21)
[2020-02-25] MEDS: FUROSEMIDE 40 MG TABLET PO SCH ×2 (08:31→17:22)
[2020-02-25] MEDS: OLANZAPINE 10 MG TABLET PO SCH ×2 (08:31→17:22)
[2020-02-25] MEDS: HYDROGEL DRESSING 90 GM TUBE TP SCH (08:50)
[2020-02-25] MEDS: CLOTRIMAZOLE 1% 15 GM TUBE TP SCH ×3 (08:51→17:15)
[2020-02-25] MEDS: Z GUARD REMEDY 2 OZ OINT TP SCH (08:51)
[2020-02-25] MEDS: LORAZEPAM 0.5 MG TABLET PO PRN (12:49)
--- NOTE | 2020-02-25 12:49 | NUR ---
RN NOTE: ANXIETY PT YELLING AND SCREAMING WHILE STAFF ATTEMPT TO ASSIST HER TO BED. PT IS PARANOID AND FEARFUL. MEDICATED WITH ATIVAN 0.5 MG PO PRN
--- NOTE | 2020-02-25 14:32 | NUR ---
GROUP NOTE: Pt was asleep and not easily roused by verbal cues.
[2020-02-25 15:43] LABS: BASOPHILS # (AUTO) 0.1 /CMM (0.0-0.2); BASOPHILS % (AUTO) 1.1 % (0.0-2.0); EOSINOPHILS % (AUTO) 0.4 % (0.0-6.0); HEMATOCRIT 38 % (33-45); HEMOGLOBIN 12.3 g/dL (11.5-14.8); LYMPHOCYTES # (AUTO) 1.5 /CMM (0.8-4.8); LYMPHOCYTES % (AUTO) 30.9 % (20.0-44.0); MEAN CORPUSCULAR HGB CONC 32 g/dl (31.0-36.0); MEAN CORPUSCULAR VOLUME 93 fL (82-100); MONOCYTES # (AUTO) 0.3 /CMM (0.1-1.30); MONOCYTES % (AUTO) 6.4 % (2.0-12.0); NEUTROPHILS % (AUTO) 61.2 % (43.0-81.0); PLATELET COUNT (AUTO) 244 /CMM (150-450); RED BLOOD CELL COUNT(AUTO) 4.14 MIL/uL (4.0-5.2)
[2020-02-25 16:00] VITALS: BP 105/55
[2020-02-25 16:05] LABS: CALCIUM, SERUM 9.3 mg/dL (8.5-10.1); CREATININE 0.8 mg/dL (0.6-1.3); POTASSIUM 3.8 mmol/L (3.5-5.1)
[2020-02-25] MEDS: ENOXAPARIN SODIUM 40 MG/0.4 ML DISP.SYRIN SQ SCH (17:26)
[2020-02-25 20:13] VITALS: BP 132/74
[2020-02-25] MEDS: DIVALPROEX SODIUM 250 MG TABLET.DR PO SCH (21:13)
--- NOTE | 2020-02-25 21:13 | NUR ---
GPS RN NOTE: INDIGESTION PATIENT STATED "I NEED SOMETHING FOR INDIGESTION CAN I HAVE SOMETHING NOW". ADMINISTERED MAALOX SUSP UDC 30ML PRN @2108. WILL REASSESS AND CONTINUE TO MONITOR Q15 MIN FOR SAFETY AND BEHAVIOR.
[2020-02-26] MEDS: CEPHALEXIN MONOHYDRATE 500 MG CAPSULE PO SCH ×4 (05:45→17:32)
[2020-02-26 08:00] VITALS: BP 130/70
[2020-02-26] MEDS: DIVALPROEX SODIUM 500 MG TABLET.DR PO SCH ×3 (08:38→16:57)
[2020-02-26] MEDS: POTASSIUM CHLORIDE 10 MEQ TABLET.SA PO SCH (08:38)
[2020-02-26] MEDS: OLANZAPINE 10 MG TABLET PO SCH ×2 (08:38→16:57)
[2020-02-26] MEDS: QUETIAPINE FUMARATE 100 MG TABLET PO SCH ×2 (08:38→16:57)
[2020-02-26] MEDS: FUROSEMIDE 40 MG TABLET PO SCH ×2 (08:38→16:57)
[2020-02-26] MEDS: LINEZOLID 600 MG TABLET PO SCH ×2 (08:38→16:57)
[2020-02-26] MEDS: CLOTRIMAZOLE 1% 15 GM TUBE TP SCH ×4 (08:38→16:58)
[2020-02-26] MEDS: Z GUARD REMEDY 2 OZ OINT TP SCH (08:39)
--- NOTE | 2020-02-26 08:55 | NUR ---
SNF CONTACT: SW received a call from Zuleyma, erosion control coordinator at [facility] ([facility]) [id number] [facility] [id number] stating that pt had been referred to their facility from [facility] medical floor and stated pt has been accepted. SW stated that once pt is stable she will be discharged to their facility.
--- NOTE | 2020-02-26 09:48 | NUR ---
WOUND CARE CONSULT: PT NOTED TO HAVE RED SPOTS ON FACE. PT BEING TREATED WITH ANTIFUNGAL CREAM PER Symone MARTINEZ N.P. NURSING STAFF TO OBSERVE EVERY SHIFT. WILL SEE PRN. Addendum: 02/26/20 at 0952 by IMER WALKER WNDNU RN TO DISCUSS RED SPOTS ON FACE WITH PSYCHIATRIST TODAY.
[2020-02-26] MEDS: HYDROGEL DRESSING 90 GM TUBE TP SCH (10:29)
--- NOTE | 2020-02-26 10:30 | NUR ---
GPS/RN-NOTES DID WOUND TREATMENT ON LEFT LOWER LEG ORDERED.
--- NOTE | 2020-02-26 14:14 | NUR ---
GROUP NOTE: Pt was asleep and not easily aroused by verbal cues.
[2020-02-26 16:00] VITALS: BP 136/68
[2020-02-26 20:10] VITALS: BP 118/51
[2020-02-26] MEDS: ENOXAPARIN SODIUM 40 MG/0.4 ML DISP.SYRIN SQ SCH (21:25)
[2020-02-26] MEDS: DIVALPROEX SODIUM 250 MG TABLET.DR PO SCH (21:25)
[2020-02-27 08:00] VITALS: BP 159/86
[2020-02-27] MEDS: POTASSIUM CHLORIDE 10 MEQ TABLET.SA PO SCH (08:14)
[2020-02-27] MEDS: FUROSEMIDE 40 MG TABLET PO SCH ×2 (08:14→16:33)
[2020-02-27] MEDS: DIVALPROEX SODIUM 500 MG TABLET.DR PO SCH ×3 (08:14→16:33)
[2020-02-27] MEDS: QUETIAPINE FUMARATE 100 MG TABLET PO SCH ×2 (08:14→16:34)
[2020-02-27] MEDS: OLANZAPINE 10 MG TABLET PO SCH ×2 (08:14→16:33)
--- NOTE | 2020-02-27 09:28 | NUR ---
RN-CO: Patient refused lab works.
[2020-02-27] MEDS: CLOTRIMAZOLE 1% 15 GM TUBE TP SCH ×4 (09:33→16:39)
[2020-02-27] MEDS: Z GUARD REMEDY 2 OZ OINT TP SCH (09:34)
[2020-02-27] MEDS: HYDROGEL DRESSING 90 GM TUBE TP SCH (09:34)
[2020-02-27] MEDS: LORAZEPAM 0.5 MG TABLET PO PRN (10:08)
--- NOTE | 2020-02-27 10:17 | NUR ---
GPS/RN-NOTES NOTED PATIENT SCREAMING AND YELLING ,AT THE STAFF USING FOUL LANGUAGES. STATED" YOU ALL WILL GET FIRED BECAUSE I WILL MAKE SURE OF THAT". REDIRECTED AND OFFERED ATIVAN AND AGREED. ATIVAN 0.5MG P.O GIVEN PRN ORDER.ALL NEEDS ATTENDED ,ASSISTED BY TWO STAFF TO WALK AND SHOWER .WILL CONTINUE MONITORING FOR SAFETY AND BEHAVIOR.
--- NOTE | 2020-02-27 10:56 | NUR ---
GPS/RN-NOTES PATIENT IN THE DAY ROOM CALM AND QUIET,NO ACUTE DISTRESS NOTED. DID WOUND TREATMENT ON THE LEFT LOWER LEG ORDERED.
--- NOTE | 2020-02-27 14:27 | NUR ---
INDIVIDUAL INTERVENTION: Pt is inappropriate for group at this time. Pt is unable to join at this moment been yelling.
[2020-02-27 16:00] VITALS: BP 100/71
[2020-02-27 20:59] VITALS: BP 123/64
[2020-02-27] MEDS: DIVALPROEX SODIUM 250 MG TABLET.DR PO SCH (21:19)
[2020-02-27] MEDS: ENOXAPARIN SODIUM 40 MG/0.4 ML DISP.SYRIN SQ SCH (21:20)
[2020-02-28 08:00] VITALS: BP 134/69
[2020-02-28] MEDS: OLANZAPINE 10 MG TABLET PO SCH ×2 (08:09→16:38)
[2020-02-28] MEDS: FUROSEMIDE 40 MG TABLET PO SCH ×2 (08:09→16:37)
[2020-02-28] MEDS: DIVALPROEX SODIUM 500 MG TABLET.DR PO SCH ×3 (08:09→16:38)
[2020-02-28] MEDS: QUETIAPINE FUMARATE 100 MG TABLET PO SCH ×2 (08:10→16:38)
[2020-02-28] MEDS: POTASSIUM CHLORIDE 10 MEQ TABLET.SA PO SCH (08:10)
[2020-02-28] MEDS: CLOTRIMAZOLE 1% 15 GM TUBE TP SCH ×4 (09:38→17:07)
[2020-02-28] MEDS: HYDROGEL DRESSING 90 GM TUBE TP SCH (09:39)
[2020-02-28] MEDS: Z GUARD REMEDY 2 OZ OINT TP SCH (09:39)
[2020-02-28] MEDS: LORAZEPAM 0.5 MG TABLET PO PRN ×2 (09:51→19:49)
--- NOTE | 2020-02-28 09:53 | NUR ---
GPS/RN-NOTES PATIENT IN THE ROOM TALKING TO SELF CONTINUOUSLY WITH LOUD VOICE,BANDAGE MAKER TRIED TO REDIRECT BUT PATIENT GET ANGRY AND SCREAM AND YELLS AT THE BANDAGE MAKER.STATED" YOU'RE NOT GOING TO STOP ME,WE HAVE THE F[place]OM OF SPEECH [place]". ATIVAN 1MG P.O GIVEN PRN ORDER.WILL CONT. MONITORING FOR SAFETY AND BEHAVIOR.
--- NOTE | 2020-02-28 11:45 | NUR ---
GPS/RN-NOTES PATIENT WATCHING TV IN THE DAY ROOM,CALM,NO ACUTE DISTRESS NOTED.
--- NOTE | 2020-02-28 15:28 | NUR ---
GROUP NOTE: head loft worker invited pt to join group. Pt was laughing inappropriately and did not want to join.
[2020-02-28 16:00] VITALS: BP 139/73
--- NOTE | 2020-02-28 19:20 | NUR ---
GPS/RN-NOTES PATIENT IN THE ROOM RESPONDING TO INTRENAL STIMULI TALKING TO HER SELF HYPERVERBAL WITH LOUD VOICE, DELUSIONAL , DISORGNIZED ,PARANOID, NEEDY, DEMENDING, GUARDED, PATIENT GET ANGRY AND SCREAM AND YELLS GIVE ME FOOD AND SEWER BUILDER PROVIDE SNACKS TO THE PATIENT, REALITY ORIENTION GIVEN ,WILL CONT. MONITORING FOR SAFETY AND BEHAVIOR.
--- NOTE | 2020-02-28 19:50 | NUR ---
GPS RN NOTE: ANXIETY/AGITATION PATIENT IS AGITATED, YELLING, SCREAMING, ANXIOUS, PARANOID, RESTLESS, HYPERVERBAL AT THIS TIME, CURSING STAFF. PRN ATIVAN 1 MG , PO GIVEN, WILL CONTINUE TO MONITOR .
[2020-02-28 19:59] VITALS: BP 107/55
[2020-02-28] MEDS: ENOXAPARIN SODIUM 40 MG/0.4 ML DISP.SYRIN SQ SCH (21:04)
[2020-02-28] MEDS: DIVALPROEX SODIUM 250 MG TABLET.DR PO SCH (21:14)
[2020-02-28 21:30] VITALS: BP 115/69
[2020-02-29 08:00] VITALS: BP 134/84
[2020-02-29] MEDS: Z GUARD REMEDY 2 OZ OINT TP SCH (08:30)
[2020-02-29] MEDS: CLOTRIMAZOLE 1% 15 GM TUBE TP SCH ×4 (08:30→16:43)
[2020-02-29] MEDS: QUETIAPINE FUMARATE 100 MG TABLET PO SCH ×2 (08:31→16:42)
[2020-02-29] MEDS: DIVALPROEX SODIUM 500 MG TABLET.DR PO SCH ×3 (08:31→16:42)
[2020-02-29] MEDS: HYDROGEL DRESSING 90 GM TUBE TP SCH (08:31)
[2020-02-29] MEDS: OLANZAPINE 10 MG TABLET PO SCH ×2 (08:31→16:43)
[2020-02-29] MEDS: POTASSIUM CHLORIDE 10 MEQ TABLET.SA PO SCH (08:31)
[2020-02-29] MEDS: FUROSEMIDE 40 MG TABLET PO SCH ×2 (08:31→16:42)
[2020-02-29 16:00] VITALS: BP 152/71
[2020-02-29] MEDS: LORAZEPAM 0.5 MG TABLET PO PRN (20:30)
[2020-02-29 20:41] VITALS: BP 131/74
[2020-02-29] MEDS: ENOXAPARIN SODIUM 40 MG/0.4 ML DISP.SYRIN SQ SCH (21:16)
[2020-02-29] MEDS: DIVALPROEX SODIUM 250 MG TABLET.DR PO SCH (22:05)
[2020-03-01 08:00] VITALS: BP 114/62
[2020-03-01] MEDS: OLANZAPINE 10 MG TABLET PO SCH ×2 (08:05→16:46)
[2020-03-01] MEDS: FUROSEMIDE 40 MG TABLET PO SCH ×2 (08:05→16:46)
[2020-03-01] MEDS: POTASSIUM CHLORIDE 10 MEQ TABLET.SA PO SCH (08:05)
[2020-03-01] MEDS: DIVALPROEX SODIUM 500 MG TABLET.DR PO SCH ×3 (08:05→16:47)
[2020-03-01] MEDS: QUETIAPINE FUMARATE 100 MG TABLET PO SCH ×2 (08:06→16:46)
[2020-03-01] MEDS: CLOTRIMAZOLE 1% 15 GM TUBE TP SCH ×4 (08:06→16:47)
[2020-03-01] MEDS: HYDROGEL DRESSING 90 GM TUBE TP SCH (08:07)
[2020-03-01] MEDS: Z GUARD REMEDY 2 OZ OINT TP SCH (08:07)
[2020-03-01 16:00] VITALS: BP 128/69
[2020-03-01 20:21] VITALS: BP 110/63
[2020-03-01] MEDS: ENOXAPARIN SODIUM 40 MG/0.4 ML DISP.SYRIN SQ SCH (20:57)
[2020-03-01] MEDS: DIVALPROEX SODIUM 250 MG TABLET.DR PO SCH (21:18)
[2020-03-02] MEDS: Z GUARD REMEDY 2 OZ OINT TP PRN (06:11)
[2020-03-02 07:23] LABS: BASOPHILS % (AUTO) 0.7 % (0.0-2.0); EOSINOPHILS % (AUTO) 0.4 % (0.0-6.0); HEMATOCRIT 40 % (33-45); LYMPHOCYTES # (AUTO) 1.4 /CMM (0.8-4.8); LYMPHOCYTES % (AUTO) 29.6 % (20.0-44.0); MEAN CORPUSCULAR HGB CONC 32 g/dl (31.0-36.0); MEAN CORPUSCULAR VOLUME 93 fL (82-100); MONOCYTES # (AUTO) 0.6 /CMM (0.1-1.30); MONOCYTES % (AUTO) 12.5 % (2.0-12.0); NEUTROPHILS # (AUTO) 2.7 /CMM (1.8-8.9); NEUTROPHILS % (AUTO) 56.8 % (43.0-81.0); PLATELET COUNT (AUTO) 177 /CMM (150-450); RED BLOOD CELL COUNT(AUTO) 4.35 MIL/uL (4.0-5.2); WHITE BLOOD COUNT (AUTO) 4.7 K/uL (4.3-11.0)
[2020-03-02 07:36] LABS: ALBUMIN 2.6 g/dL (3.4-5.0); BILIRUBIN,TOTAL 0.2 mg/dL (0.2-1.0); CALCIUM, SERUM 9.7 mg/dL (8.5-10.1); CREATININE 0.9 mg/dL (0.6-1.3); POTASSIUM 4.1 mmol/L (3.5-5.1); TOTAL PROTEIN, SERUM 6.6 g/dL (6.4-8.2)
[2020-03-02 08:00] VITALS: BP 145/89
[2020-03-02] MEDS: DIVALPROEX SODIUM 500 MG TABLET.DR PO SCH ×3 (08:00→17:13)
[2020-03-02] MEDS: FUROSEMIDE 40 MG TABLET PO SCH ×2 (08:00→17:13)
[2020-03-02] MEDS: POTASSIUM CHLORIDE 10 MEQ TABLET.SA PO SCH (08:00)
[2020-03-02] MEDS: QUETIAPINE FUMARATE 100 MG TABLET PO SCH ×2 (08:00→17:13)
[2020-03-02] MEDS: OLANZAPINE 10 MG TABLET PO SCH ×2 (08:00→17:13)
[2020-03-02] MEDS: CLOTRIMAZOLE 1% 15 GM TUBE TP SCH ×4 (08:43→17:22)
[2020-03-02] MEDS: HYDROGEL DRESSING 90 GM TUBE TP SCH (08:43)
[2020-03-02] MEDS: Z GUARD REMEDY 2 OZ OINT TP SCH (08:44)
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
--- NOTE | 2020-03-02 12:20 | NUR ---
RN NOTE- DRESSING CHANGE RLE. CLEANSED W NS, PINK GRANULATION TISSUE NO ODOR NO PURULENCE NO WARMTH. HYDROGEL APPLIED COVERED W GAUZE AND WRAPPED AND SECURED ABD PLACED
[2020-03-02 16:00] VITALS: BP 131/76
[2020-03-02 20:24] VITALS: BP 140/66
[2020-03-02] MEDS: ENOXAPARIN SODIUM 40 MG/0.4 ML DISP.SYRIN SQ SCH (20:57)
[2020-03-02] MEDS: DIVALPROEX SODIUM 250 MG TABLET.DR PO SCH (22:00)
[2020-03-03 08:00] VITALS: BP 132/79
[2020-03-03] MEDS: FUROSEMIDE 40 MG TABLET PO SCH ×2 (08:04→16:32)
[2020-03-03] MEDS: QUETIAPINE FUMARATE 100 MG TABLET PO SCH ×2 (08:05→16:32)
[2020-03-03] MEDS: POTASSIUM CHLORIDE 10 MEQ TABLET.SA PO SCH (08:05)
[2020-03-03] MEDS: DIVALPROEX SODIUM 500 MG TABLET.DR PO SCH ×3 (08:05→16:32)
[2020-03-03] MEDS: OLANZAPINE 10 MG TABLET PO SCH ×2 (08:05→16:32)
[2020-03-03] MEDS: CLOTRIMAZOLE 1% 15 GM TUBE TP SCH ×4 (08:13→17:18)
[2020-03-03] MEDS: HYDROGEL DRESSING 90 GM TUBE TP SCH (08:13)
[2020-03-03] MEDS: Z GUARD REMEDY 2 OZ OINT TP SCH (08:14)
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
--- NOTE | 2020-03-03 13:00 | NUR ---
RN NOTE- WOUND CARE RLE. REMOVED OLD DRESSING, CLEANSED W NS . WOUND W PINK GRANULATION TISSUE MINIMAL EXUDATE, NO ODOR NO PURULENCE. APPLIED HYDRAGEL AND GAUZE. ABD PLACED OVER AND SECURED W KERLEX. TOLERATED WELL.
--- NOTE | 2020-03-03 15:34 | NUR ---
GROUP NOTE: Group Topic: Depression SW invited patient to attend group. Patient refused to join group despite encouragement and stared at this technical proposal writer without answering.
[2020-03-03 16:00] VITALS: BP 144/59
[2020-03-03 20:00] VITALS: BP 147/71
[2020-03-03] MEDS: DIVALPROEX SODIUM 250 MG TABLET.DR PO SCH (21:10)
[2020-03-03] MEDS: ENOXAPARIN SODIUM 40 MG/0.4 ML DISP.SYRIN SQ SCH (21:10)
[2020-03-04 08:00] VITALS: BP 149/89
[2020-03-04] MEDS: CLOTRIMAZOLE 1% 15 GM TUBE TP SCH ×4 (08:00→17:06)
[2020-03-04] MEDS: DIVALPROEX SODIUM 500 MG TABLET.DR PO SCH ×3 (08:00→16:34)
[2020-03-04] MEDS: QUETIAPINE FUMARATE 100 MG TABLET PO SCH ×2 (08:00→16:34)
[2020-03-04] MEDS: OLANZAPINE 10 MG TABLET PO SCH ×2 (08:00→16:34)
[2020-03-04] MEDS: POTASSIUM CHLORIDE 10 MEQ TABLET.SA PO SCH (08:00)
[2020-03-04] MEDS: FUROSEMIDE 40 MG TABLET PO SCH ×2 (08:00→16:35)
[2020-03-04] MEDS: Z GUARD REMEDY 2 OZ OINT TP SCH (08:01)
[2020-03-04] MEDS: HYDROGEL DRESSING 90 GM TUBE TP SCH (08:03)
--- NOTE | 2020-03-04 08:29 | NUR ---
Adela Contact: LASHAE called pts julianlormilagros and friend, Marla ([phone]), and inquired about the pts discharge to a SNF. Pts friend stated that she is COVID positive as well as her and that they will not take a second test until March 09. SW stated that the pt cannot stay that long if she does not meet criteria and offered the suggestion of a SNF. SW stated that the pt will receive physical therapy there that will allow her to be stronger when discharged back home. Pts friend stated that she wants to speak to the MDs about the pts progress and her wound before a discharge plan becomes concrete.
--- NOTE | 2020-03-04 09:00 | NUR ---
RN NOTE- PT QUIET THIS MORNING DELUSIONS PERSIST PT RESPONDING TO PEOPLE IN ROOM THAT ARE NOT THERE CONVERSATIONS W PEOPLE SHE SEES. MED COMPLIANT PO INTAKE GOOD NO BEHAVIORAL ISSUES THUS FAR
--- NOTE | 2020-03-04 15:51 | NUR ---
Group Note: SW encouraged the pt to attend group therapy on 03/04/20 on the topic of discharge planning. Pt refused to attend and stated that she wanted to remain in her bedroom sleeping. Pt stated that she also wanted to be discharged as soon as possible.
[2020-03-04 16:00] VITALS: BP 110/64
[2020-03-04 19:50] VITALS: BP 138/71
[2020-03-04 19:58] VITALS: BP 138/71
[2020-03-04] MEDS ORDERED: HALOPERIDOL DECANOATE IM 100 MG/ML AMPUL IM ONE (20:00)
[2020-03-04] MEDS: ENOXAPARIN SODIUM 40 MG/0.4 ML DISP.SYRIN SQ SCH (21:36)
--- NOTE | 2020-03-04 21:40 | NUR ---
GPS RN NOTE: REFUSED SKIN ASSESSMENT PATIENT REFUSED SKIN ASSESSMENT X 3, UNCOOPERATIVE, GOT VERY AGITATED/IRRITABLE, HYPERVERBAL, CURSING & REFUSED TO BE TOUCHED BY THE STAFF, PARANOID, STATED," SEND ME TO THE [facility], I DON'T NEED TO BE HERE, I AM FINE, I DON'T NEED YOUR HELP, LEAVE ME ALONE." WILL TRY TO KEEP DRY AND CLEAN MUCH POSSIBLE. WILL CONTINUE TO MONITOR FOR ANY CHANGES WELL.
[2020-03-04] MEDS: DIVALPROEX SODIUM 250 MG TABLET.DR PO SCH (21:43)
[2020-03-05] MEDS: Z GUARD REMEDY 2 OZ OINT TP PRN (06:04)
[2020-03-05 08:30] VITALS: BP 116/73
[2020-03-05] MEDS: DIVALPROEX SODIUM 500 MG TABLET.DR PO SCH ×3 (08:55→16:33)
[2020-03-05] MEDS: QUETIAPINE FUMARATE 100 MG TABLET PO SCH ×2 (08:56→16:33)
[2020-03-05] MEDS: FUROSEMIDE 40 MG TABLET PO SCH ×2 (08:56→16:33)
[2020-03-05] MEDS: HYDROGEL DRESSING 90 GM TUBE TP SCH (08:56)
[2020-03-05] MEDS: POTASSIUM CHLORIDE 10 MEQ TABLET.SA PO SCH (08:56)
[2020-03-05] MEDS: OLANZAPINE 10 MG TABLET PO SCH ×2 (08:56→16:34)
[2020-03-05] MEDS: Z GUARD REMEDY 2 OZ OINT TP SCH (08:57)
[2020-03-05] MEDS: CLOTRIMAZOLE 1% 15 GM TUBE TP SCH ×4 (08:57→17:14)
--- NOTE | 2020-03-05 14:26 | NUR ---
GROUP NOTE: Topic: Adapting to our environment. textile worker encouraged patient to participate in group therapy. Patient was resting in bed and did not want to engage with this director underwriter sales or other peers other at this time.
[2020-03-05 16:00] VITALS: BP 139/77
[2020-03-05 20:25] VITALS: BP 128/71
[2020-03-05] MEDS: DIVALPROEX SODIUM 250 MG TABLET.DR PO SCH (21:43)
[2020-03-05] MEDS: ENOXAPARIN SODIUM 40 MG/0.4 ML DISP.SYRIN SQ SCH (21:44)
--- NOTE | 2020-03-06 07:13 | NUR ---
GPS RN OPENING NOTES RECEIVED PATIENT RESTING IN BED AT THIS TIME, NO SOB NOTED, NO S/S OF ANY ACUTE DISTRESS NOTED, NO C/O PAIN AT THIS TIME. PT IS COOPERATIVE AND CALM WITH CARE AND EASILY REDIRECTED. PT APPEARS TO TALK TO HERSELF AT TIMES. PT DENIES SI/HI/ AT THIS TIME. ENVIRONMENTAL SAFETY CHECKS PERFORMED. REALITY ORIENTATION DONE. SAFETY PRECAUTIONS IN PLACE AND MAINTAINED AT ALL TIMES, BED IN LOWEST LOCKED POSITION, SIDE RAILS UP, CALL LIGHT WITHIN REACH. WILL CONTINUE TO MONITOR Q 15 MIN, FOR SAFETY, MOOD,BEHAVIOR AND CONTINUE WITH PLAN OF CARE
[2020-03-06 08:00] VITALS: BP 140/69
[2020-03-06] MEDS: CLOTRIMAZOLE 1% 15 GM TUBE TP SCH ×4 (09:00→16:45)
[2020-03-06] MEDS: DIVALPROEX SODIUM 500 MG TABLET.DR PO SCH ×3 (09:07→16:43)
[2020-03-06] MEDS: POTASSIUM CHLORIDE 10 MEQ TABLET.SA PO SCH (09:07)
[2020-03-06] MEDS: FUROSEMIDE 40 MG TABLET PO SCH ×2 (09:07→16:42)
[2020-03-06] MEDS: QUETIAPINE FUMARATE 100 MG TABLET PO SCH ×2 (09:07→16:43)
[2020-03-06] MEDS: OLANZAPINE 10 MG TABLET PO SCH ×2 (09:08→16:43)
[2020-03-06] MEDS: HYDROGEL DRESSING 90 GM TUBE TP SCH (09:09)
[2020-03-06] MEDS: Z GUARD REMEDY 2 OZ OINT TP SCH (09:10)
--- NOTE | 2020-03-06 15:24 | NUR ---
GROUP NOTE: Topic: Learning coping skills. Patient shared that she is feeling "fine". Patient presented with disorganized thought process and states "I don't know why I'm here. She put me in here". motion picture set up worker provided reality reorientation and active listening. Patient presents with flat affect and congruent mood. Patient stated "My orthodox is Satanic Restorationist". This principal technical writer acknowledged patient's beliefs and feelings.
[2020-03-06 16:00] VITALS: BP_SYST 135; BP_SYST 137; BP_DIAS 65
--- NOTE | 2020-03-06 18:52 | NUR ---
GPS RN CLOSING NOTES PATIENT AWAKE IN BED AT THIS TIME. PT REMAINED STABLE THROUGHOUT SHIFT. PT KEPT CLEAN AND DRY. ALL CARE, NEEDS, MEDICATIONS AND WOUND TREATMENT ADMINISTERED ANTICIPATED PER ORDER. SAFETY PRECAUTIONS IN PLACE AND MAINTAINED AT ALL TIMES, BED IN LOWEST LOCKED POSITION, SIDE RAILS UP, CALL LIGHT WITHIN REACH. 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
[2020-03-06 19:38] VITALS: BP 147/88
[2020-03-06] MEDS: ENOXAPARIN SODIUM 40 MG/0.4 ML DISP.SYRIN SQ SCH (21:03)
[2020-03-06 21:15] VITALS: BP 147/88
--- NOTE | 2020-03-06 21:20 | NUR ---
GPS RN NOTE: REFUSED SKIN ASSESSMENT PATIENT REFUSED SKIN ASSESSMENT X 3, UNCOOPERATIVE, GOT VERY AGITATED, IRRITABLE, HYPERVERBAL, STATED," DON'T TOUCH ME, NURSE DON'T SUPPOSE TO TOUCH ME AT ALL." DESPITE OF RISKS & BENEFITS EXPLANATIONS, PT. CONTINUED TO REFUSE SKIN ASSESSMENT. WILL CONTINUE TO MONITOR FOR ANY CHANGES.
[2020-03-06] MEDS: DIVALPROEX SODIUM 250 MG TABLET.DR PO SCH (21:36)
[2020-03-07] MEDS: Z GUARD REMEDY 2 OZ OINT TP PRN (03:10)
--- NOTE | 2020-03-07 06:32 | NUR ---
GPS RN NOTE: REFUSED TO TURN/REPOSITION PATIENT REFUSED TO TURN & REPOSITION IN BED PER PROTOCOL DURING SUPERVISOR STAVE FINISHING, EASILY AGITATED, ANXIOUS, PREFERS TO BE IN SUPINE & SEMI ROMAN'S POSITION ONLY. DESPITE OF RISKS & BENEFITS EXPLANATIONS ABOUT SKIN BREAKDOWN, PATIENT CONTINUED TO REFUSE TURNING & REPOSITIONING. WILL ENDORSE TO AM RN FOR CONTINUITY OF CARE.
[2020-03-07 08:00] VITALS: BP 132/71
[2020-03-07] MEDS: DIVALPROEX SODIUM 500 MG TABLET.DR PO SCH ×3 (08:48→16:28)
[2020-03-07] MEDS: FUROSEMIDE 40 MG TABLET PO SCH ×2 (08:48→16:28)
[2020-03-07] MEDS: QUETIAPINE FUMARATE 100 MG TABLET PO SCH ×2 (08:48→16:28)
[2020-03-07] MEDS: POTASSIUM CHLORIDE 10 MEQ TABLET.SA PO SCH (08:48)
[2020-03-07] MEDS: OLANZAPINE 10 MG TABLET PO SCH ×2 (08:52→16:28)
[2020-03-07] MEDS: HYDROGEL DRESSING 90 GM TUBE TP SCH (08:57)
[2020-03-07] MEDS: CLOTRIMAZOLE 1% 15 GM TUBE TP SCH ×4 (08:57→16:28)
[2020-03-07] MEDS: Z GUARD REMEDY 2 OZ OINT TP SCH (08:57)
[2020-03-07] MEDS: LORAZEPAM 0.5 MG TABLET PO PRN (12:24)
--- NOTE | 2020-03-07 12:30 | NUR ---
PATIENT REPORTS "BULLYING RING" AND IS AGITATED, CRYING AND SCREAMING ABOUT GOING HOME. PRN ATIVAN GIVEN ORDERED. WILL MONITOR PATIENT CLOSELY
[2020-03-07 16:00] VITALS: BP 114/54
--- NOTE | 2020-03-07 16:50 | NUR ---
PATIENT CLEANED AND LINENS CHANGED. ATTEMPTED TO ASSESS AND LOOK AT WOUND ON LOWER LEG FOR WOUND CARE, BUT PATIENT REFUSED WOUND CARE. WILL ENDORSE THIS TO NIGHT NURSE
[2020-03-07 21:05] VITALS: BP 101/58
[2020-03-07] MEDS: DIVALPROEX SODIUM 250 MG TABLET.DR PO SCH (21:23)
[2020-03-07] MEDS: ENOXAPARIN SODIUM 40 MG/0.4 ML DISP.SYRIN SQ SCH (21:24)
[2020-03-08 08:00] VITALS: BP 131/95
[2020-03-08] MEDS: POTASSIUM CHLORIDE 10 MEQ TABLET.SA PO SCH (08:20)
[2020-03-08] MEDS: LORAZEPAM 0.5 MG TABLET PO PRN (08:20)
[2020-03-08] MEDS: OLANZAPINE 10 MG TABLET PO SCH ×2 (08:20→16:21)
[2020-03-08] MEDS: FUROSEMIDE 40 MG TABLET PO SCH ×2 (08:20→16:21)
[2020-03-08] MEDS: QUETIAPINE FUMARATE 100 MG TABLET PO SCH ×2 (08:20→16:21)
[2020-03-08] MEDS: DIVALPROEX SODIUM 500 MG TABLET.DR PO SCH ×3 (08:23→16:21)
[2020-03-08] MEDS: CLOTRIMAZOLE 1% 15 GM TUBE TP SCH ×4 (08:28→16:21)
[2020-03-08] MEDS: HYDROGEL DRESSING 90 GM TUBE TP SCH (08:28)
[2020-03-08] MEDS: Z GUARD REMEDY 2 OZ OINT TP SCH (08:29)
--- NOTE | 2020-03-08 08:30 | NUR ---
PATIENT IS SCREAMING LOUDLY IN HER BACK, SAYING SHE IS SEEING HER MOTHER, THROWING FOOD,SAYING HER MOTHER TOLD HER TO DO IT. GAVE MARII KEANEN
--- NOTE | 2020-03-08 09:00 | NUR ---
RN OPENING NOTES RECEIVED PT RESTING IN HER BED. AWAKE, A & O X 2, CONFUSED, FORGETFUL, HYPERVERBAL,SCREAMING NO SIGNS OF DISTRESS NOTED, LABILE, ANXIOUS, RESTLESS AT TIMES. PARANOID, DELUSIONAL, FLAT AFFECT AT THIS TIME. NO C/O PAIN VERBALIZED, PT. DENIES SI/HI AT THIS TIME. BED IN LOWEST/LOCKED POSITION, BED ALARM ON. SIDE RALES UP. ENVIRONMENTAL SAFETY CHECKS DONE. WILL ASSIST TO TURN/REPOSITION PER PROTOCOL. WILL CONTINUE TO MONITOR Q15 MIN FOR SAFETY, MOOD AND BEHAVIOR.
--- NOTE | 2020-03-08 11:55 | NUR ---
DR PITT SPOKE WITH PATIENT VIA ZOOM
[2020-03-08 15:56] VITALS: BP 123/66
--- NOTE | 2020-03-08 18:17 | NUR ---
wound dressing changed on , severe cellulitis noted, hot to touch, Charge nurse notified, placed an order for wound consult
[2020-03-08 20:01] VITALS: BP 103/52
[2020-03-08] MEDS: DIVALPROEX SODIUM 250 MG TABLET.DR PO SCH (21:30)
[2020-03-08] MEDS: ENOXAPARIN SODIUM 40 MG/0.4 ML DISP.SYRIN SQ SCH (21:31)
--- NOTE | 2020-03-09 06:55 | NUR ---
GPS RN NOTES: LABORATORY CHEMIST SPOKE WITH [facility]- WOUND CARE NURSE REGARDING THE PATIENT'S WOUND CARE CONSULT. PER VENITA, DOCTORS SHOULD ALSO BE NOTIFIED REGARDING THIS PATIENT'S RIGHT LOWER LEG WOUND ESPECIALLY NOTING THAT IT IS ALREADY WARM TO TOUCH. WILL PASS THE SAID MESSAGE TO DAY SHIFT NURSE. PATIENT HAS NO REPORTED FEVERS. NO RECENT LABS DONE.
[2020-03-09 08:00] VITALS: BP 127/72
[2020-03-09] MEDS: DIVALPROEX SODIUM 500 MG TABLET.DR PO SCH ×3 (08:32→16:37)
[2020-03-09] MEDS: POTASSIUM CHLORIDE 10 MEQ TABLET.SA PO SCH (08:32)
[2020-03-09] MEDS: FUROSEMIDE 40 MG TABLET PO SCH ×2 (08:32→16:37)
[2020-03-09] MEDS: QUETIAPINE FUMARATE 100 MG TABLET PO SCH ×2 (08:32→16:37)
[2020-03-09] MEDS: OLANZAPINE 10 MG TABLET PO SCH ×2 (08:32→16:37)
[2020-03-09] MEDS: CLOTRIMAZOLE 1% 15 GM TUBE TP SCH ×4 (08:33→16:38)
[2020-03-09] MEDS: Z GUARD REMEDY 2 OZ OINT TP SCH (08:34)
[2020-03-09] MEDS: HYDROGEL DRESSING 90 GM TUBE TP SCH (08:54)
--- NOTE | 2020-03-09 09:28 | NUR ---
Adela Contact: LASHAE called pts julianlord and friend, Destiny ([phone]), and informed her that the pt is going to be discharged to [facility] following day. The pts julianlord and friend stated that was acceptable as she tested positive for COVID 19 twice.
--- NOTE | 2020-03-09 09:55 | NUR ---
WOUND CARE CONSULT WOUND CARE RECEIVED CONSULT FOR RLE WOUND WITH WORSENING REDNESS AND WARM/HOT TO TOUCH. WOUND CARE NOTIFIED DPM DR BRYSON WHO IS CURRENTLY FOLLOWING THIS PATIENT.
[2020-03-09] MEDS: SULFAMETH/TRIMETH 800/160 MG 1 UDTAB TABLET PO SCH ×2 (10:55→21:28)
[2020-03-09] MEDS: CEPHALEXIN MONOHYDRATE 500 MG CAPSULE PO SCH ×2 (10:55→21:28)
--- NOTE | 2020-03-09 15:37 | NUR ---
Group Note: SW invited patient to participate in group therapy to discuss the topic of Problem Solving. Patient was asleep at this time and unable to participate in group.
[2020-03-09 16:00] VITALS: BP 141/68
[2020-03-09 17:07] LABS: BASOPHILS % (AUTO) 0.4 % (0.0-2.0); EOSINOPHILS % (AUTO) 0.5 % (0.0-6.0); HEMATOCRIT 38 % (33-45); HEMOGLOBIN 12.3 g/dL (11.5-14.8); LYMPHOCYTES # (AUTO) 1.3 /CMM (0.8-4.8); LYMPHOCYTES % (AUTO) 25.5 % (20.0-44.0); MEAN CORPUSCULAR HGB CONC 33 g/dl (31.0-36.0); MEAN CORPUSCULAR VOLUME 91 fL (82-100); MONOCYTES # (AUTO) 0.6 /CMM (0.1-1.30); MONOCYTES % (AUTO) 11.3 % (2.0-12.0); NEUTROPHILS # (AUTO) 3.2 /CMM (1.8-8.9); NEUTROPHILS % (AUTO) 62.3 % (43.0-81.0); PLATELET COUNT (AUTO) 282 /CMM (150-450); RED BLOOD CELL COUNT(AUTO) 4.16 MIL/uL (4.0-5.2); WHITE BLOOD COUNT (AUTO) 5.2 K/uL (4.3-11.0)
[2020-03-09 17:22] LABS: CALCIUM, SERUM 8.9 mg/dL (8.5-10.1); CREATININE 0.9 mg/dL (0.6-1.3); POTASSIUM 3.5 mmol/L (3.5-5.1)
[2020-03-09 20:01] VITALS: BP 111/66
[2020-03-09] MEDS: DIVALPROEX SODIUM 250 MG TABLET.DR PO SCH (21:28)
--- NOTE | 2020-03-09 23:19 | NUR ---
GPS-RN NOTE: INSOMNIA PATIENT C/O INABILITY TO SLEEP. ADMINISTERED RESTORIL 7.5MG PO ORDERED. WILL CONTINUE TO MONITOR.
[2020-03-10 08:00] VITALS: BP 124/52
[2020-03-10] MEDS: POTASSIUM CHLORIDE 10 MEQ TABLET.SA PO SCH (08:19)
[2020-03-10] MEDS: CEPHALEXIN MONOHYDRATE 500 MG CAPSULE PO SCH ×2 (08:19→20:23)
[2020-03-10] MEDS: OLANZAPINE 10 MG TABLET PO SCH ×2 (08:19→16:15)
[2020-03-10] MEDS: DIVALPROEX SODIUM 500 MG TABLET.DR PO SCH ×3 (08:19→16:15)
[2020-03-10] MEDS: FUROSEMIDE 40 MG TABLET PO SCH ×2 (08:19→16:15)
[2020-03-10] MEDS: QUETIAPINE FUMARATE 100 MG TABLET PO SCH ×2 (08:19→16:15)
[2020-03-10] MEDS: SULFAMETH/TRIMETH 800/160 MG 1 UDTAB TABLET PO SCH ×2 (08:19→20:23)
[2020-03-10] MEDS: Z GUARD REMEDY 2 OZ OINT TP SCH (08:38)
[2020-03-10] MEDS: CLOTRIMAZOLE 1% 15 GM TUBE TP SCH ×4 (08:38→16:17)
[2020-03-10] MEDS: HYDROGEL DRESSING 90 GM TUBE TP SCH (08:38)
--- NOTE | 2020-03-10 09:00 | NUR ---
RN NOTE- PT AGITATED YELLING AT TIMES MED COMPLIANT IRRITABLE RESPONDING TO AH AND VH 'MILLI' CALLING HER NAMES FROM [facility]. ALL NEEDS ATTENDED
--- NOTE | 2020-03-10 09:00 | NUR ---
RN NOTE- PT WOUND CARE COMPLETED AT THIS TIME. OLD DRESSING REMOVED, CLEANSED W NS, HYDRAGEL APPLIED W GAUZE COVERING AND WRAPPED W KERLEX GAUZE. TAPED SECURELY
--- NOTE | 2020-03-10 09:27 | NUR ---
RN NOTE- AGITATION/ INCREASING AGITATION SCREAMING AND NON DIRECTABLE. REQUESTING RX SHOT . DR PITT NOTIFIED AND ORDERED ATIVAN 1 MG, HALDOL 5 MG AND BENADRYL 25MG. GIVEN IM W STAFF PRESENT. PT TOLERATED WELL.
[2020-03-10] MEDS ORDERED: LORAZEPAM INJ 2 MG/ML VIAL IM ONE (09:30)
[2020-03-10] MEDS ORDERED: HALOPERIDOL LACTATE INJ 5 MG/ML VIAL IM ONE (09:30)
[2020-03-10] MEDS ORDERED: diphenhydrAMINE HCL 50 MG/ML VIAL IM ONE (09:30)
--- NOTE | 2020-03-10 09:52 | NUR ---
Adela Contact: LASHAE called pts landlord and friend, Destiny ([phone]), and provided her with the location information of the SNF. She stated that she feels that the pt is not ready to be discharged because the psych meds are not stabilizing her. She states that she feels like the pt is confused now more than ever as she is calling her by a different name.
--- NOTE | 2020-03-10 10:00 | NUR ---
Individual Intervention with the pt: SW informed the pt clearly about her discharge plan as she appeared to be paranoid about it and then the pt began screaming and yelling at the SW. She stated that the SW was a liar and so was all the staff and stated that she wanted to return to her home without having the realization as to why she cannot return at this time. SW called the pts landlord to speak to her and the pt reacted the same way with the landlord.
--- NOTE | 2020-03-10 11:00 | NUR ---
RN NOTE- AGITATION/ PT RESTING QUIETLY THOUGH NOT ASLEEP. SCREAMING AGITATION HAS DECREASED. PT DRINKING WATER EATING JELLO CALMER
--- NOTE | 2020-03-10 13:20 | NUR ---
Adela Contact: LASHAE called pts adela and friend, Destiny ([phone]), and left a voicemail message stating that the pt is not going to be discharged today and that the medications are going to be adjusted.
--- NOTE | 2020-03-10 15:52 | NUR ---
Group Note: SW encouraged pt to attend group therapy on 03/10/20 on the topic of discharge planning. Pt was unable to attend as she received an IM shot and was asleep.
[2020-03-10 16:00] VITALS: BP 130/73
--- NOTE | 2020-03-10 16:10 | NUR ---
RN NOTE- NO BM FOR SEVERAL DAYS. PT STATES SHE HAD ONE BM YESTERDAY THOUGH SAME STAFF CNAS HERE TODAY AND SAID THEY WOULDVE HAD TO HELP HER TO BR AND THAT THEY RECALL SHE DIDNT HAVE ONE. DOOR PERSON BILL AWARE. MOM 30 CC GIVEN W PRUNE JUICE .
--- NOTE | 2020-03-10 17:05 | NUR ---
RN NOTE- ASSISTED PT W RECRUITING COORDINATOR TO BR IN ATTEMPT TO HAVE BM. PT UNABLE TO GO. WILL WAIT UNTIL AFTER DINNER.
[2020-03-10] MEDS ORDERED: LACTULOSE 10 G/15 ML UDC (PYXIS) PO PRN (18:00)
[2020-03-10] MEDS: SORBITOL SOLUTION 30 ML PO SCH (20:00)
[2020-03-10 20:14] VITALS: BP 130/71
[2020-03-10] MEDS: LORAZEPAM 0.5 MG TABLET PO PRN (20:23)
[2020-03-10] MEDS: DIVALPROEX SODIUM 250 MG TABLET.DR PO SCH (21:26)
--- NOTE | 2020-03-11 02:47 | NUR ---
GPS RN NOTES LACTULOSE 30ML GIVEN.
--- NOTE | 2020-03-11 06:08 | NUR ---
GPS RN NOTES PRUNE JUICE GIVEN. PATIENT WAS COOPERATIVE TO DRINK IT.
--- NOTE | 2020-03-11 06:21 | NUR ---
GPS RN NOTES BROUGHT PATIENT TO THE TOILET. PATIENT HAS A LARGE BOWEL MOVEMENT. ENCOURAGE PATIENT TO INCREASE FLUID IN TAKE.
[2020-03-11 08:00] VITALS: BP_SYST 130; BP_SYST 144; BP_DIAS 69; BP_DIAS 84
[2020-03-11] MEDS: DIVALPROEX SODIUM 500 MG TABLET.DR PO SCH ×3 (08:28→16:59)
[2020-03-11] MEDS: OLANZAPINE 10 MG TABLET PO SCH ×2 (08:28→16:59)
[2020-03-11] MEDS: CEPHALEXIN MONOHYDRATE 500 MG CAPSULE PO SCH ×2 (08:28→21:21)
[2020-03-11] MEDS: FUROSEMIDE 40 MG TABLET PO SCH ×2 (08:29→16:59)
[2020-03-11] MEDS: SULFAMETH/TRIMETH 800/160 MG 1 UDTAB TABLET PO SCH ×2 (08:29→21:21)
[2020-03-11] MEDS: QUETIAPINE FUMARATE 100 MG TABLET PO SCH (08:29)
[2020-03-11] MEDS: POTASSIUM CHLORIDE 10 MEQ TABLET.SA PO SCH (08:29)
[2020-03-11] MEDS: SORBITOL SOLUTION 30 ML PO SCH (09:23)
[2020-03-11] MEDS: Z GUARD REMEDY 2 OZ OINT TP SCH (09:25)
[2020-03-11] MEDS: CLOTRIMAZOLE 1% 15 GM TUBE TP SCH ×4 (09:25→17:02)
[2020-03-11] MEDS: HYDROGEL DRESSING 90 GM TUBE TP SCH (09:25)
--- NOTE | 2020-03-11 11:31 | NUR ---
Group Note: SW encouraged pt to participate in group on the topic of dealing with anxiety. Patient was asleep at that time and did not participate.
--- NOTE | 2020-03-11 13:00 | NUR ---
GPS/RN-NOTES NOTED BLISTERS ON PATIENT LEFT BREAST FOLD AND JAYNA KHAN MADE AWARE WITH NNO. WILL CONTINUE MONITORING FOR ANY ADVERSE CHANGES AND KEPT PATIENT CLEAN AND DRY AT ALL TIMES.
[2020-03-11 16:00] VITALS: BP 128/73
[2020-03-11] MEDS: HALOPERIDOL 5 MG TABLET PO SCH (16:59)
[2020-03-11 19:36] VITALS: BP 111/57
[2020-03-11] MEDS: DIVALPROEX SODIUM 250 MG TABLET.DR PO SCH (21:21)
[2020-03-12 08:00] VITALS: BP 119/73
[2020-03-12] MEDS: CEPHALEXIN MONOHYDRATE 500 MG CAPSULE PO SCH ×2 (08:22→21:04)
[2020-03-12] MEDS: SULFAMETH/TRIMETH 800/160 MG 1 UDTAB TABLET PO SCH ×2 (08:22→21:04)
[2020-03-12] MEDS: OLANZAPINE 10 MG TABLET PO SCH ×2 (08:23→16:07)
[2020-03-12] MEDS: DIVALPROEX SODIUM 500 MG TABLET.DR PO SCH ×3 (08:23→16:08)
[2020-03-12] MEDS: FUROSEMIDE 40 MG TABLET PO SCH ×2 (08:23→16:08)
[2020-03-12] MEDS: POTASSIUM CHLORIDE 10 MEQ TABLET.SA PO SCH (08:23)
[2020-03-12] MEDS: HALOPERIDOL 5 MG TABLET PO SCH ×2 (08:23→16:07)
[2020-03-12] MEDS: SORBITOL SOLUTION 30 ML PO SCH (08:25)
[2020-03-12] MEDS: CLOTRIMAZOLE 1% 15 GM TUBE TP SCH ×4 (09:07→16:11)
[2020-03-12] MEDS: HYDROGEL DRESSING 90 GM TUBE TP SCH (09:07)
[2020-03-12] MEDS: Z GUARD REMEDY 2 OZ OINT TP SCH (09:08)
--- NOTE | 2020-03-12 10:15 | NUR ---
GPS/RN-NOTES DID WOUND TREATMENT ON RIGHT LOWER LEG ORDERED.
--- NOTE | 2020-03-12 13:17 | NUR ---
RNManuelCO: PATIENT WAS SEEN BY DR PITT VIA [facility].
[2020-03-12 16:00] VITALS: BP 121/72
[2020-03-12 20:17] VITALS: BP 160/79
[2020-03-12] MEDS: DIVALPROEX SODIUM 250 MG TABLET.DR PO SCH (21:04)
[2020-03-13] MEDS: HALOPERIDOL 5 MG TABLET PO SCH ×2 (08:01→17:08)
[2020-03-13] MEDS: OLANZAPINE 10 MG TABLET PO SCH ×2 (08:01→17:08)
[2020-03-13] MEDS: CEPHALEXIN MONOHYDRATE 500 MG CAPSULE PO SCH ×2 (08:01→20:35)
[2020-03-13] MEDS: POTASSIUM CHLORIDE 10 MEQ TABLET.SA PO SCH (08:01)
[2020-03-13] MEDS: DIVALPROEX SODIUM 500 MG TABLET.DR PO SCH ×3 (08:01→17:08)
[2020-03-13] MEDS: SORBITOL SOLUTION 30 ML PO SCH (08:01)
[2020-03-13] MEDS: SULFAMETH/TRIMETH 800/160 MG 1 UDTAB TABLET PO SCH ×2 (08:01→20:34)
[2020-03-13] MEDS: FUROSEMIDE 40 MG TABLET PO SCH ×2 (08:01→17:08)
[2020-03-13 08:30] VITALS: BP 117/66
[2020-03-13] MEDS: Z GUARD REMEDY 2 OZ OINT TP SCH (09:50)
[2020-03-13] MEDS: CLOTRIMAZOLE 1% 15 GM TUBE TP SCH ×4 (09:50→17:08)
[2020-03-13] MEDS: HYDROGEL DRESSING 90 GM TUBE TP SCH (09:51)
--- NOTE | 2020-03-13 10:00 | NUR ---
GPS/RN-NOTES DID WOUND TREATMENT ON RIGHT LOWER LEG ORDERED. PATIENT CALM AND COOPERATIVE DURING THE TREATMENT.
[2020-03-13 16:00] VITALS: BP 120/70
[2020-03-13 19:48] VITALS: BP 145/66
[2020-03-13 20:00] VITALS: BP 145/66
[2020-03-13] MEDS: DIVALPROEX SODIUM 250 MG TABLET.DR PO SCH (21:09)
--- NOTE | 2020-03-14 00:50 | NUR ---
GPS RN NOTE: RIGHT & LEFT UNDER BREAST BLISTERS WHILE PROVIDING CONTINENCE CARE TO THE PATIENT, NOTED WITH RIGHT UNDER BREAST BLISTERS & LEFT UNDER BREAST OPEN BLISTER. PATIENT REFUSED THE MEASUREMENTS DESPITE OF RISKS/BENEFITS EXPLANATIONS, EASILY AGITATED, SCREAMS/YELLING, RESTLESS, PARANOID, UNCOOPERATIVE DURING FURTHER ASSESSMENT. REFUSED RIGHT BREAST BLISTERS PICTURE WELL. WILL TRY TO TAKE PICTURE AGAIN. KEPT CLEAN & DRY RIGHT & LEFT UNDER BREAST FOLDS, CLEANED, PAT DRY & COVERED LEFT OPEN BLISTER WITH DRY DRESSING. PATIENT WAS NOT VERY COOPERATIVE WITH ASSESSMENT & CARE. CHARGE NURSE, SCIENTIFIC ADVISOR & MD MADE AWARE WITH NEW ORDER FOR WOUND CARE CONSULT TO BE ORDERED. ORDER NOTED & CARRIED OUT. WILL CONTINUE TO MONITOR FOR ANY CHANGES. WILL NOTIFY FAMILY IN AM.
--- NOTE | 2020-03-14 03:00 | NUR ---
GPS RN NOTE PATIENT REFUSED TO TURN & REPOSITION DESPITE OF RISKS & BENEFITS EXPLANATIONS. PT. STATED," I AM BETTER LIKE THIS, I CAN'T BREATH PROPERLY WHEN I AM ON MY SIDE." PATIENT ONLY WANTED TO BE IN SEMI ROMAN'S POSITION ONLY AT NIGHT.
[2020-03-14] MEDS: Z GUARD REMEDY 2 OZ OINT TP PRN (03:05)
--- NOTE | 2020-03-14 06:15 | NUR ---
GPS RN NOTE APPROACHED TO THE PATIENT & INFORMED HER THAT RIGHT UNDER BREAST FOLD BLISTERS PICTURE TO BE TAKEN, PATIENT REFUSED FIRST BUT AFTER PROVIDING EXPLANATIONS OF RISKS & BENEFITS, PT. AGREED TO TAKE A PICTURE BUT STILL REFUSED MEASUREMENTS & WANTED TO BE COVERED RIGHT AWAY. PICTURE TAKEN & PLACED IN THE CHART. INCIDENT REPORT WAS DONE ALREADY, WOUND CARE CONSULT ORDER WAS PLACED WELL. DRY DRESSING APPLIED.
--- NOTE | 2020-03-14 07:20 | NUR ---
GPS RN NOTE: NOTIFIED FAMILY CALLED [phone], SPOKE TO MAVIS ABOUT SKIN BLISTERS UNDER BOTH BREASTS, MAVIS STATED PATIENT HSA H/O DEVELOPING BLISTERS UNDER BREAST ON & OFF SINCE LAST 8 MONTHS & SHE WAS TREATING PATIENT'S SKIN PROBLEMS WHILE TAKING CARE OF THE PATIENT. MAVIS LIKES TO SPEAK TO MD WHEN POSSIBLE. ENDORSED TO AM RN TO RELAY THE MESSAGE TO MD TO DISCUSS PLAN OF CARE WITH MAVIS.
[2020-03-14 08:00] VITALS: BP 135/64
[2020-03-14] MEDS: OLANZAPINE 10 MG TABLET PO SCH ×2 (08:51→17:37)
[2020-03-14] MEDS: FUROSEMIDE 40 MG TABLET PO SCH ×2 (08:51→17:37)
[2020-03-14] MEDS: SORBITOL SOLUTION 30 ML PO SCH (08:51)
[2020-03-14] MEDS: SULFAMETH/TRIMETH 800/160 MG 1 UDTAB TABLET PO SCH ×2 (08:51→21:12)
[2020-03-14] MEDS: HALOPERIDOL 5 MG TABLET PO SCH ×2 (08:51→17:37)
[2020-03-14] MEDS: POTASSIUM CHLORIDE 10 MEQ TABLET.SA PO SCH (08:52)
[2020-03-14] MEDS: CEPHALEXIN MONOHYDRATE 500 MG CAPSULE PO SCH ×2 (08:52→21:12)
[2020-03-14] MEDS: DIVALPROEX SODIUM 500 MG TABLET.DR PO SCH ×3 (08:52→17:37)
[2020-03-14] MEDS: HYDROGEL DRESSING 90 GM TUBE TP SCH (09:03)
[2020-03-14] MEDS: CLOTRIMAZOLE 1% 15 GM TUBE TP SCH ×4 (09:04→17:42)
[2020-03-14] MEDS: Z GUARD REMEDY 2 OZ OINT TP SCH (09:05)
[2020-03-14 16:00] VITALS: BP 137/66
[2020-03-14 20:00] VITALS: BP 135/69
--- NOTE | 2020-03-14 20:30 | NUR ---
GPS RN NOTE: AGITATION PATIENT IS NOTED TO BE AGITATED , IRRITABLE, HYPERVERBAL, CLAPPING LOUD & KEEPS REPEATING SAME THING OVER & OVER DUE TO HER ROOM MATE BEING DEMANDING & KEEPS CALLING FOR NURSE ALL THE TIME . PATIENT VERBALIZED THAT SHE DOES NOT LIKE HER ROOM MATE. PT. WANTED TO MOVE TO ANOTHER ROOM RIGHT AWAY DUE TO OTHER PATIENT'S ANXIOUS BEHAVIOR. PATIENT WAS REDIRECTED, OTHER PATIENT WAS MOVED TO ANOTHER ROOM. PATIENT DID CALM DOWN & FELL ASLEEP AFTER THE OTHER PATIENT WAS MOVED OUT OF THE ROOM. WILL CONTINUE TO MONITOR FOR ANY CHANGES.
[2020-03-14 20:32] VITALS: BP 135/69
[2020-03-14] MEDS: DIVALPROEX SODIUM 250 MG TABLET.DR PO SCH (21:32)
[2020-03-15] MEDS: Z GUARD REMEDY 2 OZ OINT TP PRN ×2 (05:21→21:20)
[2020-03-15 08:00] VITALS: BP 142/64
[2020-03-15] MEDS: SORBITOL SOLUTION 30 ML PO SCH (08:35)
[2020-03-15] MEDS: HALOPERIDOL 5 MG TABLET PO SCH ×2 (08:35→17:28)
[2020-03-15] MEDS: OLANZAPINE 10 MG TABLET PO SCH ×2 (08:35→17:28)
[2020-03-15] MEDS: POTASSIUM CHLORIDE 10 MEQ TABLET.SA PO SCH (08:35)
[2020-03-15] MEDS: SULFAMETH/TRIMETH 800/160 MG 1 UDTAB TABLET PO SCH ×2 (08:35→21:18)
[2020-03-15] MEDS: DIVALPROEX SODIUM 500 MG TABLET.DR PO SCH ×3 (08:35→17:28)
[2020-03-15] MEDS: LORAZEPAM 0.5 MG TABLET PO PRN (08:35)
[2020-03-15] MEDS: CEPHALEXIN MONOHYDRATE 500 MG CAPSULE PO SCH ×2 (08:35→21:18)
[2020-03-15] MEDS: FUROSEMIDE 40 MG TABLET PO SCH ×2 (08:39→17:28)
--- NOTE | 2020-03-15 08:39 | NUR ---
RN NOTE: ANXIETY/AGITATION PT YELLING AND SCREAMING. YELLING "TAKE IT OFF MY NECK". NOTHING VISIBLE ON PATIENT'S NECK. PT YELLING "NO MCC". THREATENING TO ARUN AND FIRE STAFF. UNABLE TO BE REDIRECTED. MEDICATED WITH ATIVAN 1MG PO PRN.
[2020-03-15] MEDS: CLOTRIMAZOLE 1% 15 GM TUBE TP SCH ×4 (09:15→18:03)
[2020-03-15] MEDS: HYDROGEL DRESSING 90 GM TUBE TP SCH (09:16)
[2020-03-15] MEDS: Z GUARD REMEDY 2 OZ OINT TP SCH (09:16)
[2020-03-15 15:55] VITALS: BP 120/67
--- NOTE | 2020-03-15 16:25 | NUR ---
RN NOTE: COUGHING PT WITH NON-PRODUCTIVE, NON-PRODUCTIVE MOIST COUGH THIS AFTERNOON. DR ROJO NOTIFIED. ORDER FOR CHEST X-RAY
--- NOTE | 2020-03-15 19:45 | NUR ---
GPS RN NOTE AM RN INFORMED THAT LEFT UPPER ABDOMEN SKIN IRRITATION WAS NOTED, PICTURE WAS TAKEN BY AM RN BUT NOT ADDED TO THE FLOW SHEET. WILL REASSESS PATIENT'S SKIN TONIGHT FOR WEEKLY ASSESSMENT & TAKE PICTURES. PATIENT IS INTERMITTENTLY SLEEPING AT THIS TIME & REFUSING SKIN ASSESSMENT AT THIS TIME. WILL TRY AGAIN LATER.
[2020-03-15 20:00] VITALS: BP 142/74
--- NOTE | 2020-03-15 21:00 | NUR ---
GPS RN NOTE PATIENT REFUSED WEEKLY SKIN ASSESSMENT AT THIS TIME. DOES NOT WANT TO BE BOTHERED. WILL TRY AGAIN LATER.
[2020-03-15] MEDS: DIVALPROEX SODIUM 250 MG TABLET.DR PO SCH (22:00)
--- NOTE | 2020-03-16 06:51 | NUR ---
GPS RN NOTE PATIENT WAS CLEANED, CHANGED, WEEKLY ASSESSMENT DONE, PICTURES TAKEN, PATIENT WAS UNCOOPERATIVE DURING CARE AT TIMES, STATED," YOU ARE TAKING PICTURES SO YOU CAN MAKE MORE MONEY." PT. WAS REFUSING TO APPLY CREAM UNDER HER BREAST FOLDS & TO TAKE PICTURES. ENCOURAGED THE PATIENT MULTIPLE TIMES & WAS ABLE TO TAKE PICTURES BUT PATIENT CONTINUED TO REFUSE TO APPLY CREAM UNDER HER BREASTS FOR REDNESS & WANTED TO BE COVERED RIGHT AWAY. WILL ENDORSE TO AM RN.
--- NOTE | 2020-03-16 06:56 | NUR ---
GPS RN NOTE NAINA CALLED & REQUESTED FOR MD TO CALL HER BACK TO DISCUSS PLAN OF CARE. LEFT A NOTE ON THE MESSAGE BOARD FOR MD & ENDORSED TO AM RN TO RELAY THE MESSAGE TO TO CALL BACK MAVIS.
[2020-03-16 08:00] VITALS: BP 142/74
[2020-03-16] MEDS: CLOTRIMAZOLE 1% 15 GM TUBE TP SCH ×4 (08:11→17:36)
[2020-03-16] MEDS: HYDROGEL DRESSING 90 GM TUBE TP SCH (08:12)
[2020-03-16] MEDS: Z GUARD REMEDY 2 OZ OINT TP SCH (08:12)
[2020-03-16] MEDS: POTASSIUM CHLORIDE 10 MEQ TABLET.SA PO SCH (08:50)
[2020-03-16] MEDS: DIVALPROEX SODIUM 500 MG TABLET.DR PO SCH ×3 (08:50→17:09)
[2020-03-16] MEDS: SULFAMETH/TRIMETH 800/160 MG 1 UDTAB TABLET PO SCH (08:50)
[2020-03-16] MEDS: FUROSEMIDE 40 MG TABLET PO SCH ×2 (08:50→17:09)
[2020-03-16] MEDS: CEPHALEXIN MONOHYDRATE 500 MG CAPSULE PO SCH (08:50)
[2020-03-16] MEDS: HALOPERIDOL 5 MG TABLET PO SCH ×2 (08:50→17:10)
[2020-03-16] MEDS: OLANZAPINE 10 MG TABLET PO SCH ×2 (08:50→17:09)
[2020-03-16] MEDS: SORBITOL SOLUTION 30 ML PO SCH (08:51)
--- NOTE | 2020-03-16 09:25 | NUR ---
Adela Contact: LASHAE called pts landlord and friend, Destiny ([phone]), and discussed the pts plan. She stated that her quarantine period will be concluded in two days and that the pt can only be discharged to her at that time. Pts caregiver stated that she would like the pt to be discharged back to her once she is stable and can get out of bed by herself. She would also like her wound to be addressed. LASHAE stated that she will speak to the nurses and the MD and then call her back.
--- NOTE | 2020-03-16 10:00 | NUR ---
Individual Intervention with the pt: SW spoke to the pt at length about a possible discharge to [facility] and the pt stated that she will go to the facility and work on her physical therapy for two weeks before returning to her home. She stated that she does not want to stay longer than that and she does not trust the SNFs. SW asked where she was last time and pt stated it was called [facility]. SW stated that the pt was not referred there and instead she will be going to [facility] and that Dr. Rubin will be the one to follow up with her. Pt stated that she will go to the SNF.
--- NOTE | 2020-03-16 10:04 | NUR ---
Individual Intervention with the pt: Pt began to scream 5 minutes after the previous conversation and stated that she is refusing to go to the facility and she stated that "everyone is lying to me." SW attempted to speak to her and ask her what caused her to change her mind and she stated that she did not know. Pt stated that she was screaming because she wants to go back to her home and that she wants to get out of bed at the current moment. SW stated that Destiny is still quarantining and has two more days left before she can go home with her. Pt stated that she wanted to leave now and that she cannot be forced to go to a SNF. SW stated that she will consult with the MD.
--- NOTE | 2020-03-16 10:46 | NUR ---
Adela Contact: Pts landlord and friend, Destiny ([phone]), called the SW and stated that she wants an update regarding the pts discharge. SW stated that she spoke to the pt and she had agreed to go to SNF and then 5 minutes later she began crying and screaming stating that she did not want to be discharged to a SNF and wants to go home. Pts caregiver and friend stated once again that she needs to have physical therapy and a wound consult first. SW stated that she will pass along the request.
--- NOTE | 2020-03-16 10:48 | NUR ---
WOUND CARE CONSULT: PT SEEN FOR BREASTFOLD RASH WHICH IS IMPROVING AND ALSO OPEN SKIN UNDER LEFT BREAST WITH HEALED AREAS UNDER RT BREAST. RECOMMENDATIONS MADE FOR SKIN CARE AND PROTECTION. DISCUSSED WITH NURSING STAFF. PT IS AMBULATORY WITH ASSISTANCE. WILL SEE PRN. WAGNER IN AGREEMENT WITH PLAN OF CARE. Addendum: 03/16/20 at 1050 by IMER WALKER WNDNU Amended: Links added.
--- NOTE | 2020-03-16 12:42 | NUR ---
[facility]: SW received a call from Collette ([phone]), patient case coordinator, who stated that she wanted an update regarding the pts discharge. SW explained that the recommendation is to go to SNF but the pt refuses to go every time it is brought up. SW stated that the pt will most likely be discharged to the landlord's home once she is cleared from COVID. manager enterprise content management requested that notes be faxed to: [phone] at the time of discharge.
[2020-03-16 16:00] VITALS: BP 141/75
[2020-03-16 19:39] VITALS: BP 139/56
[2020-03-16] MEDS: DIVALPROEX SODIUM 250 MG TABLET.DR PO SCH (21:35)
[2020-03-17 08:00] VITALS: BP 137/85
[2020-03-17] MEDS: CLOTRIMAZOLE 1% 15 GM TUBE TP SCH ×4 (08:05→17:58)
[2020-03-17] MEDS: Z GUARD REMEDY 2 OZ OINT TP SCH (08:05)
[2020-03-17] MEDS: HYDROGEL DRESSING 90 GM TUBE TP SCH (08:06)
[2020-03-17] MEDS: POTASSIUM CHLORIDE 10 MEQ TABLET.SA PO SCH (08:53)
[2020-03-17] MEDS: OLANZAPINE 10 MG TABLET PO SCH ×2 (08:53→17:10)
[2020-03-17] MEDS: SORBITOL SOLUTION 30 ML PO SCH (08:53)
[2020-03-17] MEDS: FUROSEMIDE 40 MG TABLET PO SCH ×2 (08:53→17:09)
[2020-03-17] MEDS: HALOPERIDOL 5 MG TABLET PO SCH ×2 (08:53→17:09)
[2020-03-17] MEDS: DIVALPROEX SODIUM 500 MG TABLET.DR PO SCH ×3 (08:53→17:10)
--- NOTE | 2020-03-17 10:30 | NUR ---
RN NOTE: DR. ESCOBAR AT BEDSIDE TO ASSESS RESPIRATORY STATUS
[2020-03-17 16:00] VITALS: BP 153/87
[2020-03-17 20:10] VITALS: BP 141/69
[2020-03-17] MEDS: DIVALPROEX SODIUM 250 MG TABLET.DR PO SCH (21:09)
[2020-03-18 08:00] VITALS: BP 147/71
[2020-03-18] MEDS: FUROSEMIDE 40 MG TABLET PO SCH ×2 (08:22→17:23)
[2020-03-18] MEDS: OLANZAPINE 10 MG TABLET PO SCH ×2 (08:22→17:23)
[2020-03-18] MEDS: POTASSIUM CHLORIDE 10 MEQ TABLET.SA PO SCH (08:23)
[2020-03-18] MEDS: SORBITOL SOLUTION 30 ML PO SCH (08:23)
[2020-03-18] MEDS: HALOPERIDOL 5 MG TABLET PO SCH ×2 (08:23→17:23)
[2020-03-18] MEDS: CLOTRIMAZOLE 1% 15 GM TUBE TP SCH ×4 (08:26→17:44)
[2020-03-18] MEDS: Z GUARD REMEDY 2 OZ OINT TP SCH (08:26)
[2020-03-18] MEDS: HYDROGEL DRESSING 90 GM TUBE TP SCH (08:26)
[2020-03-18] MEDS: DIVALPROEX SODIUM 500 MG TABLET.DR PO SCH ×3 (08:33→17:23)
--- NOTE | 2020-03-18 13:26 | NUR ---
Home Health Referral: LASHAE faxed a home health referral to [facility] to the fax number: [phone].
--- NOTE | 2020-03-18 13:26 | NUR ---
Adela Contact: Pts adela and friend, Destiny ([phone]), called the SW and confirmed that she will be picking up the pt around 6pm.
--- NOTE | 2020-03-18 13:27 | NUR ---
[facility]: LASHAE faxed notes to [facility] to the fax number [phone] with attention to Collette.
--- NOTE | 2020-03-18 14:42 | NUR ---
Discharge Note: Pt was discharged back to her home [place] [address] [place], [address]. Pts friend and landlord, Marla ([phone]), picked up the pt up around 4pm. Upon discharge, the pt pt appeared to be in a euthymic mood and presented with a calm affect. Pt denied both suicidal and homicidal ideation as well as auditory and visual hallucinations. Pt appeared to be appropriately dressed and groomed. Pt appeared to be ambulatory with an unsteady gait and utilizes a walker. Pt was referred to [facility] and services will begin the next day. Pt will be under the care of her psychiatrist at [facility] [place] at [address] [place] [address]; ; and a fax of records was sent to: [phone] and will be under the care of her game breeding farm manager, Dr. [place], [place] [address] [place] [address]; .
--- NOTE | 2020-03-18 15:04 | NUR ---
PATIENT ALERT ,VERBALLY RESPONSIVE ,MED COMPLIANT DENIES SUICIDAL IDEATION DENIES HOMICIDAL IDEATION ,DENIES AUDITORY ,VISUAL HALLUCINATION ,CALM COOPERATIVE ,NO C/O PAIN ,PATIENT STATED "I FEEL BETTER ".PATIENT SHOWERED AND WALKED WITH PHYSICAL THERAPIST .SEEN BY WITH DISCHARGE ORDERS AND CALLED WITH DISCHARGE ORDERS ,PATIENT REFUSED DISCHARGE PHOTOS ,ALL DISCHARGE INSTRUCTION GIVEN TO PATIENT ,HOME HEALTH ARRANGED BY CHIEF WHARFINGER .ALL BELONGINGS RETURNED TO PATIENT.
[2020-03-18 16:00] VITALS: BP 144/70
--- NOTE | 2020-03-18 18:11 | NUR ---
RN NOTE :patient discharged with Marla plant health care technician all discharge instruction and prescription given to patient and Marla ,able to verbalize understanding ,patient discharged with private car.
== END 2020-03-18 18:00 | disposition home or self-care (01) | DRG 885 ==
LOC: GPS 17:05
PROVIDERS: ADMIT Psychiatry & Neurology Psychiatry; ATTEND Student in an Organized Health Care Education/Training Program
DX: F25.9 Schizoaffective disorder, unspecified (principal); E43 Unspecified severe protein-calorie malnutrition; I11.0 Hypertensive heart disease with heart failure; I50.32 Chronic diastolic (congestive) heart failure; L03.115 Cellulitis of right lower limb; L03.116 Cellulitis of left lower limb; Z68.43 Body mass index [BMI] 50.0-59.9, adult; I87.311 Chronic venous hypertension (idiopathic) with ulcer of right lower extremity; L97.819 Non-pressure chronic ulcer of other part of right lower leg with unspecified severity; F29 Unspecified psychosis not due to a substance or known physiological condition; F41.9 Anxiety disorder, unspecified; E66.01 Morbid (severe) obesity due to excess calories; E86.0 Dehydration; F32.9 Major depressive disorder, single episode, unspecified; Z73.6 Limitation of activities due to disability; G89.4 Chronic pain syndrome; M79.661 Pain in right lower leg; R21 Rash and other nonspecific skin eruption; L30.9 Dermatitis, unspecified; E88.09 Other disorders of plasma-protein metabolism, not elsewhere classified
CPT/HCPCS: 36415; 71045-TC; 80048-TC; 80053-TC; 80061-TC; 80164-TC; 82565-TC; 82962-TC; 84439-TC; 84443-TC; 85025-TC; 87070-TC; 93971-TC; 97116-TC; 97530-TC; A6248; A6253; J1200; J1630; J1631; J1650; J2060